=== PATIENT | female | born 1955 | race American Indian/Alaskan Native ===

== ENCOUNTER 2016-09-24 07:43 | Day surgery (SDC) | payer MEDICARE ==
[2016-09-24] MEDS ORDERED: ECOTRIN PO ONE ×2 (08:05→08:10)
[2016-09-24] MEDS ORDERED: NACL 0.9% 500 ML 500 ML ONE (08:05)
[2016-09-24] MEDS ORDERED: NACL 0.9% 500 ML 500 ML IV SCH (09:00)
[2016-09-24] MEDS ORDERED: VERSED ONE (11:21)
[2016-09-24] MEDS ORDERED: CALAN ONE (11:21)
[2016-09-24] MEDS ORDERED: SUBLIMAZE ONE (11:21)
[2016-09-24] MEDS ORDERED: HEPARIN/NS 5000 UNIT/500ML(CATH LAB) 1,000 ML IR ONE (11:21)
[2016-09-24] MEDS ORDERED: HEPARIN 10,000 UNITS/10 ML ONE (11:21)
[2016-09-24] MEDS ORDERED: XYLOCAINE 2% INFILTRATI ONE (11:22)
--- NOTE | 2016-09-24 12:16 | Short Stay Summary ---
Short Stay Documentation Date of service: 09/24/16 - History H&P: obtained from office - Allergies and Medications Current Medications: Allergies No Known Allergies Allergy (Verified 04/21/16 12:33) Home Medications Medication Instructions Recorded Confirmed Last Taken Type Aspirin 81 mg PO DAILY 03/26/16 09/24/16 09/23/16 History Carvedilol [Coreg] 25 mg PO BID 03/26/16 09/24/16 09/23/16 History [place]-3S/Dha/Epa/Fish Oil [Fish 1 each PO DAILY 03/26/16 09/24/16 09/23/16 History Oil 1,200 mg Softgel] Ranitidine HCl [Acid Control] 150 mg PO DAILY 03/26/16 09/24/16 09/23/16 History glipiZIDE [Glucotrol] 10 mg PO QDAY 03/26/16 09/24/16 09/23/16 History metFORMIN [Glucophage] 500 mg PO BID 03/26/16 09/24/16 09/23/16 History oxyCODONE /ACETAMINOPHEN [Percocet 1 tab PO DAILY 03/26/16 09/24/16 09/23/16 History 5/325] AtorvaSTATin [Lipitor] 20 mg PO DAILY 09/24/16 09/24/16 09/23/16 History Isosorb Dinit/Hydralazine HCl 1 tab PO TID 09/24/16 09/24/16 09/24/16 08:30 History [Bidil Tablet] Levothyroxine [Synthroid] 75 mcg PO QAM 09/24/16 09/24/16 09/23/16 History Active Medications Sodium Chloride (Nacl 0.9% 500 Ml) 500 mls @ 50 mls/hr IV DIRECT TONI Stop: 09/24/16 18:59 Last Admin: 09/24/16 08:40 Dose: 50 mls/hr - Brief post op/procedure progress note Date of procedure: 09/24/16 Pre-op diagnosis: abnormal stress test Procedure: LHC - please see dictated cath report Anesthesia: local Estimated blood loss: none Pathology: none Condition: stable - Hospital course Hospital course: Pt is a 60 YO female with a past medical history significant for HTN, DM, HLP, HF, CMP, and abnormal stress test. She presented for scheduled elective coronary angiography and subsequently underwent LHC via right radial artery per Dr. Ventura, which revealed normal coronaries. She remained clinically and hemodynamically stable throughout her procedure and recovery and is cleared for discharge home following the completion of her post-cath order set. 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
--- NOTE | 2016-09-24 14:06 | Cardiac Catherization Report ---
CARDIAC CATHETERIZATION REPORT INDICATIONS: The patient is a 60-year-old -[place]osoth[place] female with history of mild cardiomyopathy and having abnormal stress thallium with mild anterior ischemia. The patient is a hypertensive, diabetes, hyperlipidemic with history of congestive heart failure in 05/2016. Her ejection fraction was 20%-25% then. The patient also had cardiac catheterization done in the past in 01/2011, one time initially it was felt that the patient has a right coronary disease; however, repeat coronary angiography done on 01/29/2011 showed no significant coronary disease and normal contractility was noted. Continued on medical therapy. The patient presently brought to the catheterization because of chest pains. The patient was brought to the catheterization laboratory in fasting condition. The right wrist area and forearm thoroughly cleansed with Betadine solution and sterile drapes were applied. Local anesthesia was achieved using 2% Xylocaine. Right radial artery puncture was made using 21-gauge arterial puncture needle. Subsequently, 6-Lao sheath was introduced. A 5-Lao multipurpose catheter was used to obtain the angiograms of the left ventricle done in WALTER projection followed by using 5-Lao TIG catheter were obtaining the angiograms of the left coronary artery and right coronary artery in multiple views. At the end of the procedure, catheter and sheath were removed. Good hemostasis was achieved with pressure bandage. Following findings were noted. HEMODYNAMICS: 1. Opening aortic pressure 149/63. Left ventricular pressure 145/21. No gradient across the aortic valve. Estimated ejection fraction 45%-50%. 2. Left ventriculogram done in WALTER projection showed very mild LV dysfunction with diffuse hypokinesis. Ejection fraction is 45%-50%. No significant mitral regurgitation noted. 3. Right coronary artery dominant vessel is arising normally from right coronary cusp, angiographically smooth and normal. 4. Left coronary artery arises normally from left coronary cusp. Left main, LAD, which curves around the apex and its branches, circumflex artery and its branches are angiographically smooth and normal. Collaterals none. FINAL IMPRESSION: 1. Mild LV dysfunction with ejection fraction 45%-50%. 2. Normal coronary anatomy. 3. Right radial artery was used for access. Procedure was uncomplicated. The patient will be continued on risk factor modification and medical therapy. [facility]# [id number] CRISELDA/NTS
[2016-09-24 14:20] VITALS: BP 150/78
== END 2016-09-24 14:45 | disposition home or self-care (01) ==
LOC: OPU 07:43
PROVIDERS: ATTEND Internal Medicine
DX: R94.39 Abnormal result of other cardiovascular function study (principal); I42.8 Other cardiomyopathies; I11.0 Hypertensive heart disease with heart failure; I50.9 Heart failure, unspecified; E78.5 Hyperlipidemia, unspecified; E11.9 Type 2 diabetes mellitus without complications; E03.9 Hypothyroidism, unspecified; Z79.899 Other long term (current) drug therapy; Z79.84 Long term (current) use of oral hypoglycemic drugs; Z87.891 Personal history of nicotine dependence; Z80.9 Family history of malignant neoplasm, unspecified; Z82.49 Family history of ischemic heart disease and other diseases of the circulatory system; Z82.3 Family history of stroke; Z88.6 Allergy status to analgesic agent; Z88.8 Allergy status to other drugs, medicaments and biological substances
CPT/HCPCS: 93005; 93010; 93458; C1887; C1894; J1644; J2250; J3010; J7040; 82962; Q9967

== ENCOUNTER 2017-09-09 10:42 | Inpatient (IN) | payer MEDICARE ==
[2017-09-09] MEDS ORDERED: ASPIRIN PO ONE (11:08)
--- NOTE | 2017-09-09 11:16 | Emergency Department Report ---
ED Chest Pain HPI - General Chief Complaint: Chest Pain Stated Complaint: CHEST PAIN/DIZZINESS Time Seen by Provider: 09/09/17 11:11 Source: patient Mode of arrival: Ambulatory Limitations: No Limitations - History of Present Illness Initial Comments: She is 61-year-old female that presents emergency room with complaints of chest pain started at 6 AM this morning at rest and shortness of breath and dizziness. Patient states took her blood pressure home and she was hypotensive at 62/36 hours since being here the blood pressure is normalized. Patient states the pain was substernal left chest and radiating to her left lateral chest. Patient states the pain was a 10 out of 10 at home but has since reduced down to 2 out of 10. Patient states that her shortness of breath and dizziness are little bit better. Patient states her symptoms are better with rest and worse with movement. Patient states she does not have a history of A. fib. -: Sudden Onset: during rest Pain Location: substernal, left chest Pain Radiation: other (left lateral chest underneath her left breast) Severity: severe Severity scale (0 -10): 10 Quality: sharp Consistency: other (pain is improving) Improves With: rest Worsens With: exertion, movement re: dyspnea. denies: nausea, vomting, diaphoresis, sense of impending doom Other Symptoms: palpitations. denies: cough, fever, syncope, rash, acid taste in mouth, leg swelling, burping Treatments Prior to Arrival: none Aspirin use within the Past 7 Days: (1) Yes - Related Data Home Medications Medication Instructions Recorded Confirmed Last Taken Aspirin 81 mg PO DAILY 03/26/16 09/09/17 09/23/16 Carvedilol [Coreg] 25 mg PO BID 03/26/16 09/09/17 09/09/17 glipiZIDE [Glucotrol] 10 mg PO BID 03/26/16 09/09/17 09/23/16 metFORMIN [Glucophage] 1,000 mg PO BID 03/26/16 09/09/17 09/23/16 oxyCODONE /ACETAMINOPHEN [Percocet 1 tab PO BID PRN 03/26/16 09/09/17 09/23/16 5/325 mg] AtorvaSTATin [Lipitor] 10 mg PO DAILY 09/24/16 09/09/17 09/23/16 Isosorbibe Dinit/Hydralazine 1 tab PO TID 09/24/16 09/09/17 09/24/16 08:30 [Bidil Tablet] Levothyroxine [Synthroid] 75 mcg PO QAM 09/24/16 09/09/17 09/23/16 Amlodipine Besylate [Norvasc] 5 mg PO QDAY 09/09/17 09/09/17 Unknown Cholecalciferol (Vitamin D3) 1,000 unit PO QDAY 09/09/17 09/09/17 Unknown [Vitamin D3] Ferrous Sulfate [Iron] 325 mg PO QDAY 09/09/17 09/09/17 Unknown Losartan [Cozaar] 100 mg PO QDAY 09/09/17 09/09/17 09/09/17 Ranitidine HCl [Zantac 150 MG TAB] 150 mg PO QDAY 09/09/17 09/09/17 Unknown Allergies Allergy/AdvReac Type Severity Reaction Status Date / Time No Known Allergies Allergy Verified 04/21/16 12:33 Heart Score - HEART Score History: Slightly suspicious EKG: Normal Age: 45-65 Risk factors: > 3 risk factors or hx of atherosclerotic disease Troponin: < normal limit HEART Score: 3 ED Review of Systems ROS: Stated complaint: CHEST PAIN/DIZZINESS Other details as noted in HPI Comment: All other systems reviewed and negative Constitutional: denies: chills, fever Eyes: denies: eye pain, eye discharge, vision change ENT: denies: ear pain, throat pain Respiratory: shortness of breath. denies: cough, wheezing Cardiovascular: chest pain, palpitations, dyspnea on exertion Endocrine: no symptoms reported Gastrointestinal: denies: abdominal pain, nausea, diarrhea Genitourinary: denies: urgency, dysuria, discharge Musculoskeletal: denies: back pain, joint swelling, arthralgia Skin: denies: rash, lesions Neurological: other (dizziness). denies: headache, weakness, paresthesias Psychiatric: denies: anxiety, depression Hematological/Lymphatic: denies: easy bleeding, easy bruising ED Past Medical Hx - Past Medical History Previous Medical History?: Yes Hx Hypertension: Yes Hx Heart Attack/AMI: Yes (2009, cath negative per patient, follows with Dr. Minor ) Hx Congestive Heart Failure: Yes Hx Diabetes: Yes (TYPE 2) Hx GERD: Yes Hx Liver Disease: No Hx Renal Disease: No Hx Headaches / Migraines: No Hx Seizures: No Hx Kidney Stones: Yes (2015) Hx Asthma: No Hx HIV: No Additional medical history: Thyroid - Surgical History Past Surgical History?: Yes Hx Coronary Stent: No Hx Open Heart Surgery: No Hx Pacemaker: No Hx Internal Defibrillator: No Hx Cholecystectomy: No Hx Appendectomy: No Hx Breast Surgery: No Additional Surgical History: thyroidectomy - Family History Family history: hypertension - Social History Smoking Status: Never Smoker Substance Use Type: None - Medications Home Medications: Home Medications Medication Instructions Recorded Confirmed Last Taken Type Aspirin 81 mg PO DAILY 03/26/16 09/09/17 09/23/16 History Carvedilol [Coreg] 25 mg PO BID 03/26/16 09/09/17 09/09/17 History glipiZIDE [Glucotrol] 10 mg PO BID 03/26/16 09/09/17 09/23/16 History metFORMIN [Glucophage] 1,000 mg PO BID 03/26/16 09/09/17 09/23/16 History oxyCODONE /ACETAMINOPHEN [Percocet 1 tab PO BID PRN 03/26/16 09/09/17 09/23/16 History 5/325 mg] AtorvaSTATin [Lipitor] 10 mg PO DAILY 09/24/16 09/09/17 09/23/16 History Isosorbibe Dinit/Hydralazine 1 tab PO TID 09/24/16 09/09/17 09/24/16 08:30 History [Bidil Tablet] Levothyroxine [Synthroid] 75 mcg PO QAM 09/24/16 09/09/17 09/23/16 History Amlodipine Besylate [Norvasc] 5 mg PO QDAY 09/09/17 09/09/17 Unknown History Cholecalciferol (Vitamin D3) 1,000 unit PO QDAY 09/09/17 09/09/17 Unknown History [Vitamin D3] Ferrous Sulfate [Iron] 325 mg PO QDAY 09/09/17 09/09/17 Unknown History Losartan [Cozaar] 100 mg PO QDAY 09/09/17 09/09/17 09/09/17 History Ranitidine HCl [Zantac 150 MG TAB] 150 mg PO QDAY 09/09/17 09/09/17 Unknown History ED Physical Exam - General Limitations: No Limitations General appearance: alert, in no apparent distress - Head Head exam: Present: atraumatic, normocephalic - Eye Eye exam: Present: normal appearance - ENT ENT exam: Present: mucous membranes moist - Neck Neck exam: Present: normal inspection - Respiratory Respiratory exam: Present: normal lung sounds bilaterally. Absent: respiratory distress - Cardiovascular Cardiovascular Exam: Present: regular rate, normal rhythm. Absent: systolic murmur, diastolic murmur, rubs, gallop - GI/Abdominal GI/Abdominal exam: Present: soft, normal bowel sounds - Extremities Exam Extremities exam: Present: normal inspection - Back Exam Back exam: Present: normal inspection - Neurological Exam Neurological exam: Present: alert, oriented X3 - Psychiatric Psychiatric exam: Present: normal affect, normal mood - Skin Skin exam: Present: warm, dry, intact, normal color. Absent: rash ED Course Vital Signs 09/09/17 09/09/17 09/09/17 11:03 11:37 11:45 Temperature 98.7 F Pulse Rate 74 147 H 138 H Respiratory 21 15 Rate Blood Pressure 124/74 118/74 O2 Sat by Pulse 98 99 97 Oximetry 09/09/17 09/09/17 09/09/17 12:00 12:15 12:31 Temperature Pulse Rate 140 H 128 H 143 H Respiratory 22 24 29 H Rate Blood Pressure 99/64 100/54 100/54 O2 Sat by Pulse 98 96 Oximetry 09/09/17 09/09/17 09/09/17 12:45 13:01 13:15 Temperature Pulse Rate 132 H 152 H 134 H Respiratory 22 17 15 Rate Blood Pressure 103/80 122/69 122/69 O2 Sat by Pulse 97 95 Oximetry 09/09/17 09/09/17 09/09/17 13:30 13:45 14:01 Temperature Pulse Rate 112 H 122 H 139 H Respiratory 25 H 19 20 Rate Blood Pressure 119/61 119/61 105/68 O2 Sat by Pulse 97 97 Oximetry 09/09/17 09/09/17 09/09/17 14:15 14:30 15:09 Temperature Pulse Rate 133 H 124 H 110 H Respiratory 26 H 17 Rate Blood Pressure 119/50 105/72 106/70 O2 Sat by Pulse 95 95 Oximetry - Reevaluation(s) Reevaluation #1: Bit Tapper consult. Discussed cased discussed fully with photo mask pattern generator and they stated they will come down and see her now. 09/09/17 11:56 Reevaluation #2: Bit Tapper at bedside 09/09/17 12:19 Reevaluation #3: Hospitalist consulted for admission. Discussed case with patient and hospitalist. Discussed all results with patient. Discussed plan of care with patient. Patient agreed to admission. We will start amiodarone for the A. fib with RVR 09/09/17 12:24 ANA LAURA score - Ana Laura Score Age > 65: (0) No Aspirin use within the Past 7 Days: (1) Yes 3 or more CAD Risk Factors: (1) Yes 2 or more Angina events in past 24 hrs: (0) No Known CAD with more than 50% Stenosis: (0) No Elevated Cardiac Markers: (0) No ST Deviation Greater than 0.5mm: (0) No ANA LAURA Score: 2 ED Medical Decision Making - Lab Data Result diagrams: 09/09/17 11:12 09/09/17 11:12 - EKG Data -: EKG Interpreted by Ms EKG shows normal: QRS complexes, ST-T waves Rate: tachycardia - EKG Data Interpretation: other (A. fib RVR) - Radiology Data Radiology results: report reviewed, image reviewed Negative chest - Medical Decision Making Patient's 61-year-old female that presents to emergency room with chest pain, shortness of breath and dizziness. Patient also had hypotension at home. Patient found to have A. fib RVR. New onset A. fib. Bit Tapper consultation and agreed with admission to the hospitalist group. Critical Care Time: Yes Critical care attestation.: If time is entered above; I have spent that time in minutes in the direct care of this critically ill patient, excluding procedure time. Critical Care Time: 45 minutes spent for critical care time ED Disposition Clinical Impression: Chest pain, Hypotension, Shortness of breath, Atrial fibrillation with RVR, Elevated brain natriuretic peptide (BNP) level, Diabetes, HTN (hypertension) Disposition: OP ADMIT IP TO THIS HOSP Is pt being admited?: Yes Does the pt Need Aspirin: No Condition: Critical Time of Disposition: 12:45
[2017-09-09] MEDS ORDERED: NACL 0.9% 500 ML 500 ML IV ONE (11:31)
[2017-09-09 11:47] LABS: Basophils # (Auto) 0.1 K/mm3 (0.0-0.1); Basophils % (Auto) 0.5 % (0.0-1.8); Eosinophils # (Auto) 0.2 K/mm3 (0.0-0.4); Hematocrit 35.8 % (30.3-42.9); Lymphocytes # (Auto) 2.3 K/mm3 (1.2-5.4); Lymphocytes % (Auto) 22.9 % (13.4-35.0); Mean Corpuscular HGB Conc 31 % (30-34); Mean Corpuscular Volume 77 fl (79-97); Monocytes # (Auto) 0.3 K/mm3 (0.0-0.8); Platelet Count 247 K/mm3 (140-440); Red Blood Count 4.62 M/mm3 (3.65-5.03); Red Cell Distribution Width 14.3 % (13.2-15.2)
[2017-09-09 11:48] LABS: Mean Corpuscular Hemoglobin 24 pg (28-32)
--- NOTE | 2017-09-09 12:05 | XRay Report ---
AP CHEST: HISTORY: chest pain AP view of the chest demonstrates a normal mediastinal and cardiac contour with clear lungs and normal bony and soft tissue structures. IMPRESSION: No acute cardiopulmonary process.
--- NOTE | 2017-09-09 12:16 | Consultation ---
History of Present Illness Consult date: 09/09/17 Requesting physician: GWYN OROPEZA III Consult reason: atrial fibrillation History of present illness: The pt is a 61 YO female with a past medical history significant for HTN, HLP, DM, heart failure, hypothyroidism, s/p thyroidectomy. She is followed in our office by Dr. Minor. She presented with c/o dizziness, palpitations and chest pressure since this AM. She reports that she was in her usual state of health when she went to sleep last night. She states that at the onset of her symptoms this AM, she took her BP and noted BP to be 60s/40s and thus she decided to seek medical attention. Following arrival to ED, she was noted to be in AFib with RVR, HR 130s - 150s. On evaluation, she denies any current SOB, n/v, diaphoresis or syncope. Pt denies any prior history of cardiac arrhythmia. Echo done 09/2016 showed EF 45-50%, grade I diastolic dysfunction, minimal MR, mild AR, mild TR. LHC done 09/2016 showed normal coronaries, EF 45-50%. Past History Past Medical History: diabetes, hypertension, hyperlipidemia, hypothyroidism Past Surgical History: thyroidectomy Social history: denies: smoking, alcohol abuse, prescription drug abuse Medications and Allergies Allergies Allergy/AdvReac Type Severity Reaction Status Date / Time No Known Allergies Allergy Verified 04/21/16 12:33 Home Medications Medication Instructions Recorded Confirmed Last Taken Type Aspirin 81 mg PO DAILY 03/26/16 09/09/17 09/23/16 History Carvedilol [Coreg] 25 mg PO BID 03/26/16 09/09/17 09/09/17 History glipiZIDE [Glucotrol] 10 mg PO BID 03/26/16 09/09/17 09/23/16 History metFORMIN [Glucophage] 1,000 mg PO BID 03/26/16 09/09/17 09/23/16 History oxyCODONE /ACETAMINOPHEN [Percocet 1 tab PO BID PRN 03/26/16 09/09/17 09/23/16 History 5/325 mg] AtorvaSTATin [Lipitor] 10 mg PO DAILY 09/24/16 09/09/17 09/23/16 History Isosorbibe Dinit/Hydralazine 1 tab PO TID 09/24/16 09/09/17 09/24/16 08:30 History [Bidil Tablet] Levothyroxine [Synthroid] 75 mcg PO QAM 09/24/16 09/09/17 09/23/16 History Amlodipine Besylate [Norvasc] 5 mg PO QDAY 09/09/17 09/09/17 Unknown History Cholecalciferol (Vitamin D3) 1,000 unit PO QDAY 09/09/17 09/09/17 Unknown History [Vitamin D3] Ferrous Sulfate [Iron] 325 mg PO QDAY 09/09/17 09/09/17 Unknown History Losartan [Cozaar] 100 mg PO QDAY 09/09/17 09/09/17 09/09/17 History Ranitidine HCl [Zantac 150 MG TAB] 150 mg PO QDAY 09/09/17 09/09/17 Unknown History Review of Systems Constitutional: no weight loss, no weight gain, no fever, no chills, no sweats Ears, nose, mouth and throat: no ear pain, no nose pain, no sinus pressure, no sinus pain Cardiovascular: chest pain, palpitations, rapid/irregular heart beat, lightheadedness, shortness of breath, high blood pressure, no orthopnea, no edema, no syncope, no paroxysmal nocturnal dyspnea, no leg edema Respiratory: shortness of breath, no cough, no congestion, no wheezing, no pain on inspiration Gastrointestinal: no abdominal pain, no nausea, no vomiting, no diarrhea, no constipation Genitourinary Female: no pelvic pain, no flank pain, no dysuria, no urinary frequency, no urgency Musculoskeletal: no neck stiffness, no neck pain, no shooting arm pain, no arm numbness/tingling, no low back pain, no shooting leg pain, no leg numbness/ tingling, no redness of joints Integumentary: no rash, no pruritis, no redness, no sores, no wounds Neurological: no head injury, no paralysis, no weakness, no parathesias, no numbness, no tingling, no seizures, no syncope Psychiatric: no anxiety Endocrine: no cold intolerance, no heat intolerance Hematologic/Lymphatic: no easy bruising, no easy bleeding, no lymphadenopathy Allergic/Immunologic: no urticaria, no wheezing, no persistent infections Physical Examination Vital Signs Temp Pulse BP Pulse Ox 98.7 F 74 124/74 98 09/09/17 11:03 05/04/18 11:03 09/09/17 11:03 09/09/17 11:03 General appearance: no acute distress HEENT: Positive: PERRL, Normocephaly, Mucus Membranes Moist Neck: Positive: neck supple, trachea midline Cardiac: Positive: irregularly irregular, S1/S2, Tachycardia Lungs: Positive: clear to auscultation Neuro: Positive: Grossly Intact, Cranial Nerve 2-12 Intact Abdomen: Positive: Soft. Negative: Tender Skin: Positive: Clear. Negative: Rash, Wound Musculoskeletal: No Fluid Collection, No Pain, Normal Range of Motion Extremities: Absent: edema Results 09/09/17 11:12 09/09/17 11:12 CBC 09/09/17 Range/Units 11:12 WBC 10.1 (4.5-11.0) K/mm3 RBC 4.62 (3.65-5.03) M/mm3 Hgb 11.0 (10.1-14.3) gm/dl Hct 35.8 (30.3-42.9) % Plt Count 247 (140-440) K/mm3 Lymph # 2.3 (1.2-5.4) K/mm3 [place] # 0.3 (0.0-0.8) K/mm3 Eos # 0.2 (0.0-0.4) K/mm3 Baso # 0.1 (0.0-0.1) K/mm3 - Imaging and Cardiology Echo: report reviewed (09/2016 showed EF 45-50%, grade I diastolic dysfunction, minimal MR, mild AR, mild TR. ) Cardiac cath: report reviewed (09/2016 showed normal coronaries, EF 45-50%. ) EKG: report reviewed, image reviewed EKG interpretations - Telemetry EKG Rhythm: Atrial Fibrillation - EKG Supraventricular dysrhythmia: atrial fibrillation Assessment and Plan Assessment: Atrial fibrillation with RVR - ? new onset; DDimer WNL JIMBO on ? CKD H/o HTN - currently with borderline hypotension HLP DM Mild LV dysfunction / diastolic dysfunction - EF 45-50% per echo 09/2016 H/o normal coronaries H/o hypothyroidism s/cp thyroidectomy Plan: F/u echo. Obtain thyroid profile and serum Mg. Initiate IV amio gtt with bolus x 1. Initiate heparin gtt for systemic AC in regards to atrial fibrillation and plan for conversion to OAC prior to hospital discharge. Indications, potential risks and benefits of fci OAC reviewed with pt and she is agreeable. Cont gentle IVF per primary in setting of JIMBO. Consider nephrology consultation if renal indices trend upwards. Assessment and plan reviewed with pt at bedside. The patient has been seen in conjunction with Dr. Osorio who agrees with the assessment and plan of care.
[2017-09-09 12:19] LABS: BUN/Creatinine Ratio 17; Blood Urea Nitrogen 32 mg/dL (7-17); Calcium 8.8 mg/dL (8.4-10.2); Hemolysis Index 2
[2017-09-09] MEDS ORDERED: CORDARONE 150 MG in D5W 100 ML IV ONE (12:19)
[2017-09-09] MEDS ORDERED: CORDARONE 900 MG in D5W 482 ML IV SCH (13:00)
--- NOTE | 2017-09-09 13:05 | History and Physical Report ---
History of Present Illness Chief complaint: I have chest pain History of present illness: 61 YO Female with HTN, HLD, DC, CHF, DM, GERD, Hypothyroidism presents to ED for evaluation. Pt states that she has experienced pain in her chest for the past day. Pt states that symtoms began at 0600hrs today. Pain is 10/10, substernal, radiates to the left chest, sharp, worsened with exertion, relieved with rest, associated with shortness of breath, diaphoresis. Pt seen and evaluated in ED and found to have new onset Atrial Fib with RVR, as well as symptoms consistent with ACS, Diastolic CHF. Cardiology team consulted in ED. Pt denies fever, chills, NVD, Trauma, BRBPR, unintentional weight loss, night sweats, prolonged travel/immobility, individual/family history of DVT/PE, productive cough, skin rash. Past History Past Medical History: diabetes, heart failure, hypertension, hyperlipidemia, hypothyroidism Past Surgical History: thyroidectomy Social history: Family history: diabetes, hypertension Medications and Allergies Allergies Allergy/AdvReac Type Severity Reaction Status Date / Time No Known Allergies Allergy Verified 04/21/16 12:33 Home Medications Medication Instructions Recorded Confirmed Last Taken Type Aspirin 81 mg PO DAILY 03/26/16 09/09/17 09/23/16 History Carvedilol [Coreg] 25 mg PO BID 03/26/16 09/09/17 09/09/17 History glipiZIDE [Glucotrol] 10 mg PO BID 03/26/16 09/09/17 09/23/16 History metFORMIN [Glucophage] 1,000 mg PO BID 03/26/16 09/09/17 09/23/16 History oxyCODONE /ACETAMINOPHEN [Percocet 1 tab PO BID PRN 03/26/16 09/09/17 09/23/16 History 5/325 mg] AtorvaSTATin [Lipitor] 10 mg PO DAILY 09/24/16 09/09/17 09/23/16 History Isosorbibe Dinit/Hydralazine 1 tab PO TID 09/24/16 09/09/17 09/24/16 08:30 History [Bidil Tablet] Levothyroxine [Synthroid] 75 mcg PO QAM 09/24/16 09/09/17 09/23/16 History Amlodipine Besylate [Norvasc] 5 mg PO QDAY 09/09/17 09/09/17 Unknown History Cholecalciferol (Vitamin D3) 1,000 unit PO QDAY 09/09/17 09/09/17 Unknown History [Vitamin D3] Ferrous Sulfate [Iron] 325 mg PO QDAY 09/09/17 09/09/17 Unknown History Losartan [Cozaar] 100 mg PO QDAY 09/09/17 09/09/17 09/09/17 History Ranitidine HCl [Zantac 150 MG TAB] 150 mg PO QDAY 09/09/17 09/09/17 Unknown History Active Meds: Active Medications Amiodarone HCl 900 mg/ (Dextrose) 500 mls @ 33.33 mls/hr IV DIRECT TONI; Protocol Review of Systems Constitutional: no weight loss, no weight gain, no fever, no chills Ears, nose, mouth and throat: no ear pain, no ear discharge, no tinnitis, no decreased hearing, no nose pain, no nasal congestion Breasts: no change in shape, no swelling, no mass Cardiovascular: chest pain, shortness of breath, no edema, no syncope, no paroxysmal nocturnal dyspnea, no claudication, no phlebitis Respiratory: no cough, no cough with sputum, no excessive sputum, no hemoptysis Gastrointestinal: no nausea, no vomiting, no diarrhea, no constipation, no change in bowel habits, no hematemesis Genitourinary Female: no pelvic pain, no flank pain, no menorrhagia, no dysuria , no urinary frequency, no urgency Rectal: no pain, no incontinence, no bleeding Musculoskeletal: no neck stiffness, no neck pain, no shooting arm pain, no arm numbness/tingling, no low back pain, no shooting leg pain, no leg numbness/ tingling Integumentary: no rash, no pruritis, no redness, no sores, no wounds, no jaundice Neurological: no transient paralysis, no paralysis, no weakness, no parathesias , no numbness, no tingling, no seizures, no syncope, no tremors Psychiatric: no anxiety, no memory loss, no change in sleep habits, no sleep disturbances, no insomnia, no hypersomnia, no change in appetite, no change in libido, no suicidal ideation, no disorientation Endocrine: no cold intolerance, no heat intolerance, no polyphagia, no excessive thirst, no polydipsia, no polyuria, no nocturia, no excessive sweating Hematologic/Lymphatic: no easy bruising, no easy bleeding, no lymphadenopathy, no lymphedema Allergic/Immunologic: no urticaria, no allergic rhinitis, no wheezing, no persistent infections, no anaphylaxis, no angioedema Exam - Constitutional Vitals: Temp Pulse Resp BP Pulse Ox 98.7 F 74 124/74 98 09/09/17 11:03 09/09/17 11:03 09/09/17 11:03 09/09/17 11:03 General appearance: Present: mild distress - EENT Eyes: Present: PERRL ENT: hearing intact, clear oral mucosa - Neck Neck: Present: supple, normal ROM - Respiratory Respiratory effort: normal Respiratory: bilateral: CTA - Cardiovascular Rhythm: irregularly irregular Heart Sounds: Present: S1 & S2. Absent: rub, click - Extremities Extremities: pulses symmetrical, No edema Peripheral Pulses: within normal limits - Abdominal General gastrointestinal: Present: soft, non-tender, non-distended, normal bowel sounds Female genitourinary: Present: normal - Integumentary Integumentary: Present: clear, warm, dry - Musculoskeletal Musculoskeletal: gait normal, strength equal bilaterally - Psychiatric Psychiatric: appropriate mood/affect, intact judgment & insight - Neurologic Neurologic: CNII-XII intact, moves all extremities Results - Labs CBC & Chem 7: 09/09/17 11:12 09/09/17 11:12 Labs: Abnormal lab results 09/09/17 09/09/17 Range/Units 11:12 11:12 MCV 77 L (79-97) fl MCH 24 L (28-32) pg Seg Neutrophils % 71.6 H (40.0-70.0) % Carbon Dioxide 20 L (22-30) mmol/L BUN 32 H (7-17) mg/dL Creatinine 1.9 H (0.7-1.2) mg/dL Glucose 314 H (65-100) mg/dL Assessment and Plan - Patient Problems (1) ACS (acute coronary syndrome) Current Visit: Yes Status: Acute Plan to address problem: admit to telemetry, heparin drip, serial cardiac enzymes, ekg, cardiology consulted, supplemental oxygen, morphine, nitro tabs, aspirin (2) CHF (congestive heart failure) Current Visit: Yes Status: Acute Qualifiers: Heart failure type: systolic Heart failure chronicity: acute on chronic Qualified Code(s): I50.23 - Acute on chronic systolic (congestive) heart failure Plan to address problem: Admit to telemetry, cardiology consulted, Echo, monitor uop q shift, strict I/O , daily weight, afterload reduction, (3) Hypothyroid Current Visit: Yes Status: Acute Qualifiers: Hypothyroidism type: postoperative Qualified Code(s): E89.0 - Postprocedural hypothyroidism Plan to address problem: continue synthroid, thyroid panel, supportive care. (4) Atrial fibrillation with RVR Current Visit: Yes Status: Acute Plan to address problem: Cardiology consulted in ED, IV amiodarone, telemetry monitoring (5) DVT prophylaxis Current Visit: Yes Status: Acute Plan to address problem: SCD to ble while in bed,
[2017-09-09] MEDS ORDERED: NITROSTAT SL PRN (13:12)
[2017-09-09] MEDS ORDERED: MORPHINE IV PRN (13:12)
[2017-09-09] MEDS ORDERED: PROVENTIL IH PRN (13:12)
[2017-09-09] MEDS ORDERED: BABY ASPIRIN PO STA (13:12)
[2017-09-09] MEDS ORDERED: TYLENOL PO PRN (13:12)
[2017-09-09] MEDS ORDERED: ZOFRAN IV PRN (13:12)
[2017-09-09] MEDS ORDERED: SODIUM CHLORIDE FLUSH SYRINGE 10 ML IV PRN ×2 (13:12)
[2017-09-09] MEDS ORDERED: HEPARIN 10,000 UNITS/10 ML IV ONE (13:16)
[2017-09-09 13:54] LABS: INR 0.88 (0.87-1.13); Partial Thromboplastin Time 27.7 Sec. (24.2-36.6)
[2017-09-09] MEDS ORDERED: ASPIRIN ONE (14:59)
[2017-09-09] MEDS ORDERED: HEPARIN ONE (14:59)
[2017-09-09] MEDS: BIDIL 20/37.5MG PO SCH ×2 (15:09→21:49)
[2017-09-09] MEDS ORDERED: HEPARIN 10,000 UNITS/10 ML ONE (15:40)
[2017-09-09] MEDS: LASIX IV SCH (17:38)
[2017-09-09] MEDS: HEPARIN/ 0.45% NACL-25,000 UNIT/500 ML 25,000 UNIT/500 ML BAG IV SCH (17:38)
[2017-09-09] MEDS: PEPCID PO SCH (21:49)
[2017-09-09] MEDS: COREG PO SCH (21:49)
[2017-09-09] MEDS: SODIUM CHLORIDE FLUSH SYRINGE 10 ML IV SCH (21:50)
[2017-09-10] MEDS: LASIX IV SCH ×2 (06:09→17:44)
[2017-09-10] MEDS: PEPCID PO SCH ×2 (09:52→21:48)
[2017-09-10] MEDS: SYNTHROID PO SCH (09:52)
[2017-09-10] MEDS: COZAAR PO SCH (09:54)
[2017-09-10] MEDS: COREG PO SCH ×2 (09:55→21:53)
[2017-09-10] MEDS: BIDIL 20/37.5MG PO SCH ×3 (09:55→21:54)
[2017-09-10] MEDS: FEOSOL PO SCH (09:55)
[2017-09-10] MEDS: SODIUM CHLORIDE FLUSH SYRINGE 10 ML IV SCH ×2 (09:57→21:55)
[2017-09-10] MEDS ORDERED: NON-FORMULARY (Cholecalciferol (Vitamin D3) [Vitamin D3] 1,000 UNIT) PO SCH (10:00)
[2017-09-10] MEDS ORDERED: NORVASC PO SCH (10:00)
[2017-09-10] MEDS ORDERED: NON-FORMULARY (Losartan [Cozaar] 100 MG) PO SCH (10:00)
[2017-09-10] MEDS ORDERED: NON-FORMULARY (Ranitidine Hcl [Zantac 150 Mg Tab] 150 MG) PO SCH (10:00)
[2017-09-10] MEDS: VITAMIN D3 PO SCH (10:58)
--- NOTE | 2017-09-10 11:18 | Progress Note ---
Assessment and Plan Assessment and plan: Atrial fibrillation with RVR - ? new onset; D-Dimer was within normal limits. Rate is controlled with amiodarone. Change amiodarone to po per cardiology. Continue heparin drip per cardiology. Cardiology plans to convert to oral anticoagulation prior to discharge. Mild LV dysfunction / diastolic dysfunction - EF 45-50% per echo 09/2016. History of normal coronaries. JIMBO on ? CKD. Patient with baseline creatinine of 1.11 March 2016. Etiology likely secondary to vasomotor nephropathy/prerenal azotemia/dehydration Follow- up creatinine after IV fluid hydration. If no improvement in creatinine, we will obtain nephrology consultation and renal ultrasound. H/o HTN - currently with borderline hypotension. HLP. Continue Lipitor Hypothyroidism. Continue Synthroid. S/p thyroidectomy DM II. Continue Accu-Cheks and sliding scale insulin. DVT prophylaxis. Patient currently on heparin drip. History Interval history: Patient denies any chest pain or shortness of breath. Hospitalist Physical - Constitutional Vitals: Temp Pulse Resp BP Pulse Ox 97.9 F 76 16 128/70 99 09/10/17 09:10 09/10/17 10:00 09/10/17 09:10 09/10/17 09:55 09/10/17 09:10 General appearance: Present: mild distress - EENT Eyes: Present: PERRL, EOM intact ENT: hearing intact, clear oral mucosa, dentition normal - Neck Neck: Present: supple, normal ROM - Respiratory Respiratory effort: normal Respiratory: bilateral: CTA - Cardiovascular Rhythm: regular Heart Sounds: Present: S1 & S2. Absent: gallop, rub - Extremities Extremities: no ischemia, No edema, Full ROM - Abdominal General gastrointestinal: soft, non-tender, non-distended, normal bowel sounds - Integumentary Integumentary: Present: clear, warm, dry - Neurologic Neurologic: CNII-XII intact, moves all extremities Results - Labs CBC & Chem 7: 09/09/17 11:12 09/09/17 11:12 Labs: Laboratory Last Values WBC 10.1 K/mm3 (4.5-11.0) 09/09/17 11:12 RBC 4.62 M/mm3 (3.65-5.03) 09/09/17 11:12 Hgb 11.0 gm/dl (10.1-14.3) 09/09/17 11:12 Hct 35.8 % (30.3-42.9) 09/09/17 11:12 MCV 77 fl (79-97) L 09/09/17 11:12 MCH 24 pg (28-32) L 09/09/17 11:12 MCHC 31 % (30-34) 09/09/17 11:12 RDW 14.3 % (13.2-15.2) 09/09/17 11:12 Plt Count 247 K/mm3 (140-440) 09/09/17 11:12 Lymph % (Auto) 22.9 % (13.4-35.0) 09/09/17 11:12 [place] % (Auto) 3.0 % (0.0-7.3) 09/09/17 11:12 Eos % (Auto) 2.0 % (0.0-4.3) 09/09/17 11:12 Baso % (Auto) 0.5 % (0.0-1.8) 09/09/17 11:12 Lymph # 2.3 K/mm3 (1.2-5.4) 09/09/17 11:12 [place] # 0.3 K/mm3 (0.0-0.8) 09/09/17 11:12 Eos # 0.2 K/mm3 (0.0-0.4) 09/09/17 11:12 Baso # 0.1 K/mm3 (0.0-0.1) 09/09/17 11:12 Seg Neutrophils % 71.6 % (40.0-70.0) H 09/09/17 11:12 Seg Neutrophils # 7.2 K/mm3 (1.8-7.7) 09/09/17 11:12 PT 12.4 Sec. (12.2-14.9) 09/09/17 11:12 INR 0.88 (0.87-1.13) 09/09/17 11:12 APTT 27.7 Sec. (24.2-36.6) 09/09/17 11:12 D-Dimer < 135.00 ng/mlDDU (0-234) 09/09/17 11:12 Heparin Anti-Xa Level 1.01 U.I./ml (0.3-0.7) H 09/09/17 23:03 Sodium 140 mmol/L (137-145) 09/09/17 11:12 Potassium 5.0 mmol/L (3.6-5.0) 09/09/17 11:12 Chloride 102.9 mmol/L (98-107) 09/09/17 11:12 Carbon Dioxide 20 mmol/L (22-30) L 09/09/17 11:12 Anion Gap 22 mmol/L 09/09/17 11:12 BUN 32 mg/dL (7-17) H 09/09/17 11:12 Creatinine 1.9 mg/dL (0.7-1.2) H 09/09/17 11:12 Estimated GFR 32 ml/min 09/09/17 11:12 BUN/Creatinine Ratio 17 % 09/09/17 11:12 Glucose 314 mg/dL (65-100) H 09/09/17 11:12 POC Glucose 181 (70-105) H 09/10/17 07:16 Calcium 8.8 mg/dL (8.4-10.2) 09/09/17 11:12 Magnesium 1.50 mg/dL (1.7-2.3) L 09/09/17 11:12 Troponin T < 0.010 ng/mL (0.00-0.029) 09/09/17 19:29 NT-Pro-B Natriuret Pep 360.9 pg/mL (0-900) 09/09/17 11:12 TSH 0.837 mlU/mL (0.270-4.200) 09/09/17 11:12 Free T4 1.05 ng/dL (0.76-1.46) 09/09/17 11:12
--- NOTE | 2017-09-10 13:53 | Progress Note ---
Assessment and Plan Atrial fibrillation with RVR - ? new onset; DDimer WNL>converted to S.R. JIMBO on ? CKD H/o HTN - currently with borderline hypotension HLP DM Mild LV dysfunction / diastolic dysfunction - EF 45-50% per echo 09/2016 H/o normal coronaries H/o hypothyroidism s/cp thyroidectomy Plan: F/u echo. will start PO anticoagulation. Change Amlodopine to PO diltiazem may d/c from cardiac point of view once renal function is stable. - Patient Problems (1) Atrial fibrillation with RVR Current Visit: Yes Status: Acute (2) Hypothyroid Current Visit: Yes Status: Acute Qualifiers: Hypothyroidism type: postoperative Qualified Code(s): E89.0 - Postprocedural hypothyroidism (3) Diabetes Current Visit: Yes Status: Chronic (4) HTN (hypertension) Current Visit: Yes Status: Chronic (5) Hyperlipidemia Current Visit: No Status: Chronic (6) Nonischemic cardiomyopathy Current Visit: No Status: Chronic Subjective Date of service: 09/10/17 Interval history: Patient feels better,in S.R,no chest pain. Objective Vital Signs Temp Pulse Resp BP BP Pulse Ox 09/10/17 10:00 76 100 09/10/17 09:55 79 128/70 09/10/17 09:54 76 128/70 09/10/17 09:53 76 128/70 09/10/17 09:10 97.9 F 76 16 128/70 99 09/10/17 05:25 97.8 F 66 20 137/70 99 09/10/17 02:00 77 09/10/17 00:39 98.0 F 66 20 135/80 99 09/09/17 20:26 99.6 F 73 18 139/74 97 09/09/17 18:59 61 09/09/17 17:22 96 09/09/17 17:21 98.0 F 61 20 107/69 100 09/09/17 16:31 118 H 23 106/55 97 09/09/17 16:21 123 H 16 97/67 97 09/09/17 16:11 109 H 17 102/71 98 09/09/17 16:00 111 H 17 102/71 98 09/09/17 15:51 117 H 28 H 105/63 97 09/09/17 15:41 121 H 25 H 119/62 97 09/09/17 15:30 114 H 25 H 119/62 98 09/09/17 15:21 135 H 16 115/69 98 09/09/17 15:11 120 H 20 106/70 99 09/09/17 15:09 110 H 106/70 09/09/17 15:00 108 H 21 106/70 97 09/09/17 14:51 118 H 24 96/78 89 09/09/17 14:41 105 H 25 H 105/72 96 09/09/17 14:30 124 H 17 105/72 95 09/09/17 14:15 133 H 26 H 119/50 95 09/09/17 14:01 139 H 20 105/68 97 - Physical Examination HEENT: Positive: PERRL, Normocephaly, Mucus Membranes Moist Neck: Positive: neck supple, trachea midline Cardiac: Positive: Reg Rate and Rhythm Lungs: Positive: clear to auscultation Neuro: Positive: Grossly Intact, Cranial Nerve 2-12 Intact Abdomen: Positive: Soft. Negative: Tender Skin: Positive: Clear. Negative: Rash, Wound Musculoskeletal: No Fluid Collection, No Pain, Normal Range of Motion Extremities: Present: normal. Absent: edema - Labs and Meds Coagulation 09/09/17 Range/Units 11:12 PT 12.4 (12.2-14.9) Sec. INR 0.88 (0.87-1.13) APTT 27.7 (24.2-36.6) Sec. - Imaging and Cardiology EKG: report reviewed, image reviewed Echo: report reviewed (09/2016 showed EF 45-50%, grade I diastolic dysfunction, minimal MR, mild AR, mild TR. ) Cardiac cath: report reviewed (09/2016 showed normal coronaries, EF 45-50%. )
[2017-09-10] MEDS: GLUCOPHAGE PO SCH (17:44)
[2017-09-10] MEDS: GLUCOTROL PO SCH (17:44)
[2017-09-10] MEDS: ELIQUIS PO SCH (21:54)
[2017-09-10] MEDS: HEPARIN/ 0.45% NACL-25,000 UNIT/500 ML 25,000 UNIT/500 ML BAG IV SCH (21:57)
[2017-09-11] MEDS: LASIX IV SCH (06:06)
[2017-09-11 07:14] LABS: Basophils # (Auto) 0.1 K/mm3 (0.0-0.1); Basophils % (Auto) 0.7 % (0.0-1.8); Eosinophils # (Auto) 0.4 K/mm3 (0.0-0.4); Hematocrit 39.7 % (30.3-42.9); Hemoglobin 12.3 gm/dl (10.1-14.3); Lymphocytes # (Auto) 3.4 K/mm3 (1.2-5.4); Lymphocytes % (Auto) 41.9 % (13.4-35.0); Mean Corpuscular HGB Conc 31 % (30-34); Mean Corpuscular Volume 77 fl (79-97); Monocytes # (Auto) 0.5 K/mm3 (0.0-0.8); Monocytes % (Auto) 5.9 % (0.0-7.3); Platelet Count 274 K/mm3 (140-440); Red Blood Count 5.12 M/mm3 (3.65-5.03); Red Cell Distribution Width 14.4 % (13.2-15.2)
[2017-09-11 07:15] LABS: Mean Corpuscular Hemoglobin 24 pg (28-32)
[2017-09-11 07:40] LABS: Calcium 9.2 mg/dL (8.4-10.2)
[2017-09-11] MEDS: GLUCOPHAGE PO SCH ×2 (08:36→17:18)
[2017-09-11] MEDS: GLUCOTROL PO SCH ×2 (08:36→17:18)
[2017-09-11] MEDS: FEOSOL PO SCH (09:24)
[2017-09-11] MEDS: CARDIZEM CD PO SCH (09:26)
[2017-09-11] MEDS: COREG PO SCH ×2 (09:27→22:55)
[2017-09-11] MEDS: PEPCID PO SCH ×2 (09:28→22:55)
[2017-09-11] MEDS: SYNTHROID PO SCH (09:29)
[2017-09-11] MEDS: ELIQUIS PO SCH ×2 (09:30→22:55)
[2017-09-11] MEDS: VITAMIN D3 PO SCH (09:30)
[2017-09-11] MEDS: BIDIL 20/37.5MG PO SCH ×3 (09:31→22:55)
[2017-09-11] MEDS: COZAAR PO SCH (09:32)
--- NOTE | 2017-09-11 10:15 | Progress Note ---
Assessment and Plan Assessment and plan: Atrial fibrillation with RVR - ? new onset; D-Dimer was within normal limits. Rate is controlled with amiodarone. Changed amiodarone to po diltiazem per cardiology. Continue heparin drip per cardiology. Cardiology started eliquis. Mild LV dysfunction / diastolic dysfunction - EF 45-50% per echo 09/2016. History of normal coronaries. JIMBO on ? CKD. Patient with baseline creatinine of 1.11 March 2016. Etiology likely secondary to vasomotor nephropathy/prerenal azotemia/dehydration Follow- up creatinine after IV fluid hydration. If no improvement in creatinine, we will obtain nephrology consultation and renal ultrasound. If creatinine continues to improve to baseline by tomorrow likely will discharge home. H/o HTN - currently with borderline hypotension. HLP. Continue Lipitor Hypothyroidism. Continue Synthroid. S/p thyroidectomy DM II. Continue Accu-Cheks and sliding scale insulin. DVT prophylaxis. Patient currently on heparin drip. History Interval history: Patient denies any chest pain or shortness of breath. Hospitalist Physical - Constitutional Vitals: Temp Pulse Resp BP Pulse Ox 98.6 F 87 18 124/75 98 09/11/17 04:51 09/11/17 09:32 09/11/17 04:51 09/11/17 09:32 09/11/17 08:57 General appearance: Present: no acute distress - EENT Eyes: Present: PERRL, EOM intact ENT: hearing intact, clear oral mucosa, dentition normal - Neck Neck: Present: supple, normal ROM - Respiratory Respiratory effort: normal Respiratory: bilateral: CTA - Cardiovascular Rhythm: regular Heart Sounds: Present: S1 & S2. Absent: gallop, rub - Extremities Extremities: no ischemia, No edema, Full ROM - Abdominal General gastrointestinal: soft, non-tender, non-distended, normal bowel sounds - Integumentary Integumentary: Present: clear, warm, dry - Neurologic Neurologic: CNII-XII intact, moves all extremities Results - Labs CBC & Chem 7: 09/11/17 06:59 09/11/17 06:59 Labs: Laboratory Last Values WBC 8.1 K/mm3 (4.5-11.0) 09/11/17 06:59 RBC 5.12 M/mm3 (3.65-5.03) H 09/11/17 06:59 Hgb 12.3 gm/dl (10.1-14.3) 09/11/17 06:59 Hct 39.7 % (30.3-42.9) 09/11/17 06:59 MCV 77 fl (79-97) L 09/11/17 06:59 MCH 24 pg (28-32) L 09/11/17 06:59 MCHC 31 % (30-34) 09/11/17 06:59 RDW 14.4 % (13.2-15.2) 09/11/17 06:59 Plt Count 274 K/mm3 (140-440) 09/11/17 06:59 Lymph % (Auto) 41.9 % (13.4-35.0) H 09/11/17 06:59 [place] % (Auto) 5.9 % (0.0-7.3) 09/11/17 06:59 Eos % (Auto) 5.0 % (0.0-4.3) H 09/11/17 06:59 Baso % (Auto) 0.7 % (0.0-1.8) 09/11/17 06:59 Lymph # 3.4 K/mm3 (1.2-5.4) 09/11/17 06:59 [place] # 0.5 K/mm3 (0.0-0.8) 09/11/17 06:59 Eos # 0.4 K/mm3 (0.0-0.4) 09/11/17 06:59 Baso # 0.1 K/mm3 (0.0-0.1) 09/11/17 06:59 Seg Neutrophils % 46.5 % (40.0-70.0) 09/11/17 06:59 Seg Neutrophils # 3.8 K/mm3 (1.8-7.7) 09/11/17 06:59 PT 12.4 Sec. (12.2-14.9) 09/09/17 11:12 INR 0.88 (0.87-1.13) 09/09/17 11:12 APTT 27.7 Sec. (24.2-36.6) 09/09/17 11:12 D-Dimer < 135.00 ng/mlDDU (0-234) 09/09/17 11:12 Heparin Anti-Xa Level 2.00 U.I./ml (0.3-0.7) H 09/11/17 06:59 Sodium 142 mmol/L (137-145) 09/11/17 06:59 Potassium 4.0 mmol/L (3.6-5.0) 09/11/17 06:59 Chloride 99.8 mmol/L (98-107) 09/11/17 06:59 Carbon Dioxide 25 mmol/L (22-30) 09/11/17 06:59 Anion Gap 21 mmol/L 09/11/17 06:59 BUN 25 mg/dL (7-17) H 09/11/17 06:59 Creatinine 1.5 mg/dL (0.7-1.2) H 09/11/17 06:59 Estimated GFR 43 ml/min 09/11/17 06:59 BUN/Creatinine Ratio 17 % 09/11/17 06:59 Glucose 165 mg/dL (65-100) H 09/11/17 06:59 POC Glucose 149 (70-105) H 09/11/17 07:01 Calcium 9.2 mg/dL (8.4-10.2) 09/11/17 06:59 Magnesium 1.50 mg/dL (1.7-2.3) L 09/09/17 11:12 Troponin T < 0.010 ng/mL (0.00-0.029) 09/09/17 19:29 NT-Pro-B Natriuret Pep 360.9 pg/mL (0-900) 09/09/17 11:12 TSH 0.837 mlU/mL (0.270-4.200) 09/09/17 11:12 Free T4 1.05 ng/dL (0.76-1.46) 09/09/17 11:12
--- NOTE | 2017-09-11 14:26 | Progress Note ---
Assessment and Plan Atrial fibrillation with RVR - ? new onset; DDimer WNL>converted to S.R. JIMBO on ? CKD H/o HTN - currently with borderline hypotension HLP DM Mild LV dysfunction / diastolic dysfunction - EF 45-50% per echo 09/2016 H/o normal coronaries H/o hypothyroidism s/cp thyroidectomy Plan: F/u echo. will start PO anticoagulation. Change Amlodopine to PO diltiazem may d/c from cardiac point of view once renal function is stable. 09/11/2017>patient in S.R,on Eliquis since yesterday,cardiac jacobsen stable,may be discharged home on present meds including Eliquis. B.P is under control on present meds. - Patient Problems (1) Atrial fibrillation with RVR Current Visit: Yes Status: Acute (2) Hypothyroid Current Visit: Yes Status: Acute Qualifiers: Hypothyroidism type: postoperative Qualified Code(s): E89.0 - Postprocedural hypothyroidism (3) Diabetes Current Visit: Yes Status: Chronic (4) HTN (hypertension) Current Visit: Yes Status: Chronic (5) Hyperlipidemia Current Visit: No Status: Chronic (6) Nonischemic cardiomyopathy Current Visit: No Status: Chronic Subjective Date of service: 09/11/17 Interval history: Patient feels better,in S.R,no chest pain. 09/11/2017>no new complaints. Objective Vital Signs Temp Pulse Resp BP Pulse Ox 09/11/17 12:50 74 09/11/17 09:32 87 124/75 09/11/17 09:31 87 124/75 09/11/17 09:27 88 124/75 09/11/17 09:26 88 124/75 09/11/17 08:57 98 09/11/17 04:51 98.6 F 75 18 138/80 97 09/11/17 02:00 90 09/10/17 23:53 97.8 F 91 H 20 130/79 97 09/10/17 22:00 18 09/10/17 21:54 118/78 09/10/17 21:53 87 118/78 09/10/17 20:08 98.4 F 87 20 118/72 97 09/10/17 16:14 97.3 F L 75 18 147/82 100 - Physical Examination HEENT: Positive: PERRL, Normocephaly, Mucus Membranes Moist Neck: Positive: neck supple, trachea midline Cardiac: Positive: Regular Rhythm Lungs: Positive: clear to auscultation Neuro: Positive: Grossly Intact, Cranial Nerve 2-12 Intact Abdomen: Positive: Soft. Negative: Tender Skin: Positive: Clear. Negative: Rash, Wound Musculoskeletal: No Fluid Collection, No Pain, Normal Range of Motion Extremities: Present: normal. Absent: edema - Labs and Meds CBC 09/11/17 Range/Units 06:59 WBC 8.1 (4.5-11.0) K/mm3 RBC 5.12 H (3.65-5.03) M/mm3 Hgb 12.3 (10.1-14.3) gm/dl Hct 39.7 (30.3-42.9) % Plt Count 274 (140-440) K/mm3 Lymph # 3.4 (1.2-5.4) K/mm3 [place] # 0.5 (0.0-0.8) K/mm3 Eos # 0.4 (0.0-0.4) K/mm3 Baso # 0.1 (0.0-0.1) K/mm3 Comprehensive Metabolic Panel 09/11/17 Range/Units 06:59 Sodium 142 (137-145) mmol/L Potassium 4.0 (3.6-5.0) mmol/L Chloride 99.8 (98-107) mmol/L Carbon Dioxide 25 (22-30) mmol/L BUN 25 H (7-17) mg/dL Creatinine 1.5 H (0.7-1.2) mg/dL Glucose 165 H (65-100) mg/dL Calcium 9.2 (8.4-10.2) mg/dL - Imaging and Cardiology EKG: report reviewed, image reviewed Echo: report reviewed (09/2016 showed EF 45-50%, grade I diastolic dysfunction, minimal MR, mild AR, mild TR. ) Cardiac cath: report reviewed (09/2016 showed normal coronaries, EF 45-50%. ) - Telemetry EKG Rhythm: Sinus Rhythm
[2017-09-11] MEDS: SODIUM CHLORIDE FLUSH SYRINGE 10 ML IV SCH ×2 (17:26→22:55)
[2017-09-12] MEDS: LASIX IV SCH ×2 (06:50→18:27)
[2017-09-12 07:02] LABS: Hematocrit 37.6 % (30.3-42.9); Hemoglobin 12.1 gm/dl (10.1-14.3); Mean Corpuscular HGB Conc 32 % (30-34); Mean Corpuscular Volume 76 fl (79-97); Platelet Count 243 K/mm3 (140-440); Red Blood Count 4.92 M/mm3 (3.65-5.03); Red Cell Distribution Width 14.4 % (13.2-15.2)
[2017-09-12 07:09] LABS: Mean Corpuscular Hemoglobin 25 pg (28-32)
[2017-09-12 07:18] LABS: Calcium 9.1 mg/dL (8.4-10.2)
[2017-09-12 08:05] LABS: Basophils % (Manual) 0 % (0.0-1.8); Total Cells Counted 100
[2017-09-12 08:06] LABS: Anisocytosis 1+; Hypochromasia 1+; Large Platelets Few; Platelet Estimate Cons
[2017-09-12] MEDS: HEPARIN/ 0.45% NACL-25,000 UNIT/500 ML 25,000 UNIT/500 ML BAG IV SCH (09:11)
--- NOTE | 2017-09-12 09:29 | Progress Note ---
Assessment and Plan Atrial fibrillation with RVR - ? new onset; D-Dimer was within normal limits. Rate is controlled with amiodarone. Changed amiodarone to po diltiazem per cardiology. Continue heparin drip per cardiology. Cardiology started eliquis. Mild LV dysfunction / diastolic dysfunction - EF 45-50% per echo 09/2016. History of normal coronaries. JIMBO on ? CKD. Patient with baseline creatinine of 1.11 March 2016. Etiology likely secondary to vasomotor nephropathy/prerenal azotemia/dehydration Follow- up creatinine after IV fluid hydration. If no improvement in creatinine, we will obtain nephrology consultation and renal ultrasound. If creatinine continues to improve to baseline by tomorrow likely will discharge home. H/o HTN - currently with borderline hypotension. HLP. Continue Lipitor Hypothyroidism. Continue Synthroid. S/p thyroidectomy DM II. Continue Accu-Cheks and sliding scale insulin. DVT prophylaxis. Patient currently on heparin drip. Subjective Date of service: 09/12/17 Principal diagnosis: Afib with RVR, distolic HF Interval history: still having palpitaion Objective - Constitutional Vitals: Vital Signs - 12hr 09/11/17 09/12/17 09/12/17 22:55 00:10 04:00 Temperature 98.1 F Pulse Rate 85 69 69 Respiratory 18 Rate Blood Pressure 113/68 126/71 O2 Sat by Pulse 97 Oximetry 09/12/17 06:00 Temperature 98.5 F Pulse Rate 69 Respiratory 18 Rate Blood Pressure 122/70 O2 Sat by Pulse 96 Oximetry General appearance: Present: no acute distress, well-nourished - EENT Eyes: PERRL, EOM intact ENT: hearing intact, clear oral mucosa Ears: left: bulging - Neck Neck: supple, normal ROM - Respiratory Respiratory effort: normal Respiratory: bilateral: CTA - Breasts Breasts: normal - Cardiovascular Rhythm: regular Heart Sounds: Present: S1 & S2. Absent: gallop, rub Extremities: pulses intact, No edema, normal color, Full ROM - Gastrointestinal General gastrointestinal: Present: soft, non-tender, non-distended, normal bowel sounds - Genitourinary Female genitourinary: normal - Integumentary Integumentary: clear, warm, dry - Musculoskeletal Musculoskeletal: 1, strength equal bilaterally - Neurologic Neurologic: moves all extremities - Psychiatric Psychiatric: memory intact, appropriate mood/affect, intact judgment & insight - Labs CBC & Chem 7: 09/12/17 06:35 09/12/17 06:35 Labs: Abnormal lab results 09/11/17 09/12/17 09/12/17 Range/Units 21:01 06:35 06:35 MCV 76 L (79-97) fl MCH 25 L (28-32) pg Lymphocytes % (Manual) 50.0 H (13.4-35.0) % Heparin Anti-Xa Level 2.00 H (0.3-0.7) U.I./ml BUN 34 H (7-17) mg/dL Creatinine 2.0 H (0.7-1.2) mg/dL Glucose 106 H (65-100) mg/dL 09/12/17 Range/Units 06:35 MCV (79-97) fl MCH (28-32) pg Lymphocytes % (Manual) (13.4-35.0) % Heparin Anti-Xa Level > 2.00 H (0.3-0.7) U.I./ml BUN (7-17) mg/dL Creatinine (0.7-1.2) mg/dL Glucose (65-100) mg/dL
[2017-09-12] MEDS: BIDIL 20/37.5MG PO SCH ×4 (10:00→21:41)
[2017-09-12] MEDS: GLUCOTROL PO SCH ×4 (10:45→18:26)
[2017-09-12] MEDS: SYNTHROID PO SCH (10:46)
[2017-09-12] MEDS: ELIQUIS PO SCH ×2 (10:47→21:41)
[2017-09-12] MEDS: PEPCID PO SCH ×2 (10:47→21:41)
[2017-09-12] MEDS: FEOSOL PO SCH (10:47)
[2017-09-12] MEDS: VITAMIN D3 PO SCH (10:48)
[2017-09-12] MEDS: CARDIZEM CD PO SCH (10:52)
[2017-09-12] MEDS: COZAAR PO SCH (10:53)
[2017-09-12] MEDS: COREG PO SCH ×2 (10:54→21:41)
[2017-09-12] MEDS: SODIUM CHLORIDE FLUSH SYRINGE 10 ML IV SCH ×2 (10:54→21:42)
[2017-09-12] MEDS: GLUCOPHAGE PO SCH (11:04)
[2017-09-12] MEDS: PERCOCET 5/325 PO PRN (14:59)
[2017-09-12] MEDS: NACL 0.9% 1000 ML 1,000 ML IV SCH (14:59)
[2017-09-12 15:40] LABS: Bacteria,Urine 1+ /HPF (Negative); Bilirubin,Urine NEG (Negative); Blood,Urine NEG (Negative); Color,Urine Yellow (Yellow); Mucus,Urine FEW /HPF; Protein,Urine <15 mg/dL mg/dL (Negative); RBC,Urine < 1.0 /HPF (0.0-6.0); Urobilinogen,Urine < 2.0 mg/dL (<2.0)
[2017-09-13] MEDS: NACL 0.9% 1000 ML 1,000 ML IV SCH ×3 (01:05→22:18)
[2017-09-13] MEDS: LASIX IV SCH ×2 (05:30→18:29)
[2017-09-13 07:33] LABS: Basophils % (Auto) 0.5 % (0.0-1.8); Eosinophils # (Auto) 0.5 K/mm3 (0.0-0.4); Eosinophils % (Auto) 5.4 % (0.0-4.3); Hematocrit 35.5 % (30.3-42.9); Hemoglobin 11.1 gm/dl (10.1-14.3); Lymphocytes % (Auto) 46.4 % (13.4-35.0); Mean Corpuscular HGB Conc 31 % (30-34); Mean Corpuscular Volume 77 fl (79-97); Monocytes # (Auto) 0.5 K/mm3 (0.0-0.8); Platelet Count 238 K/mm3 (140-440); Red Blood Count 4.63 M/mm3 (3.65-5.03)
[2017-09-13 07:34] LABS: Mean Corpuscular Hemoglobin 24 pg (28-32)
[2017-09-13 07:59] LABS: Calcium 8.7 mg/dL (8.4-10.2)
[2017-09-13] MEDS: COZAAR PO SCH ×2 (09:00→18:28)
--- NOTE | 2017-09-13 09:16 | Ultrasound Report ---
FINAL REPORT EXAM: US RENAL BILAT HISTORY: Acute renal failure COMPARISON: None. TECHNIQUE: Grayscale and Doppler imaging of the kidneys was performed. FINDINGS: The right kidney measures 10.2 x 5.3 x 3.8 centimeters. There is normal cortical thickness of 1.1 centimeters. There is normal echogenicity. There is no hydronephrosis. There is no echogenic focus or mass. The left kidney measures 10.4 x 6.5 x 5.1 centimeters. There is normal cortical thickness of 1.4 centimeters. There is normal echogenicity. There is no hydronephrosis. There are scattered echogenic foci throughout the left kidney. IMPRESSION: Scattered echogenic foci within the left kidney that may represent scarring versus calcifications. Normal sonographic appearance of the right kidney.
[2017-09-13] MEDS: SYNTHROID PO SCH (09:42)
[2017-09-13] MEDS: COREG PO SCH ×2 (09:43→22:17)
[2017-09-13] MEDS: PEPCID PO SCH ×2 (09:43→22:16)
[2017-09-13] MEDS: ELIQUIS PO SCH ×2 (09:44→22:17)
[2017-09-13] MEDS: VITAMIN D3 PO SCH (09:44)
[2017-09-13] MEDS: FEOSOL PO SCH (09:44)
[2017-09-13] MEDS: GLUCOTROL PO SCH ×3 (09:45→18:30)
[2017-09-13] MEDS: BIDIL 20/37.5MG PO SCH ×3 (09:47→21:00)
[2017-09-13] MEDS: CARDIZEM CD PO SCH (09:48)
--- NOTE | 2017-09-13 09:51 | Progress Note ---
Assessment and Plan Assessment and plan: Atrial fibrillation with RVR - new onset; D-Dimer was within normal limits. Rate is controlled with amiodarone. Changed amiodarone to po diltiazem per cardiology. treated with heparin drip and currently on eliquis. Mild LV dysfunction / diastolic dysfunction - EF 45-50% per echo 09/2016. History of normal coronaries. JIMBO on ? CKD. Patient with baseline creatinine of 1.11 March 2016. Etiology likely secondary to vasomotor nephropathy/prerenal azotemia/dehydration. Nephrology consulted. H/o HTN - BP is on the lower side of normal. HLP. Continue Lipitor Hypothyroidism. Continue Synthroid. S/p thyroidectomy DM II. Continue Accu-Cheks and sliding scale insulin. DVT prophylaxis. Patient currently on Eliquis. Possible DC after evaluated by Nephrology History Interval history: Patient was seen and evaluated this morning, patient didn't have any new complaints. Hospitalist Physical - Constitutional Vitals: Temp Pulse Resp BP Pulse Ox 97.7 F 62 18 101/52 96 09/13/17 04:37 09/13/17 04:38 09/13/17 04:37 09/13/17 04:37 09/13/17 04:38 General appearance: Present: no acute distress, well-nourished - EENT ENT: clear oral mucosa - Neck Neck: Present: supple, normal ROM - Respiratory Respiratory effort: normal Respiratory: bilateral: CTA - Cardiovascular Rhythm: irregularly irregular - Extremities Extremities: no ischemia Extremity abnormal: edema - Abdominal General gastrointestinal: soft, non-tender, non-distended - Integumentary Integumentary: Present: clear, warm, dry - Neurologic Neurologic: CNII-XII intact - Allied Health Allied health notes reviewed: social work Results - Labs CBC & Chem 7: 09/13/17 07:07 09/13/17 07:07 Labs: Laboratory Last Values WBC 8.7 K/mm3 (4.5-11.0) 09/13/17 07:07 RBC 4.63 M/mm3 (3.65-5.03) 09/13/17 07:07 Hgb 11.1 gm/dl (10.1-14.3) 09/13/17 07:07 Hct 35.5 % (30.3-42.9) 09/13/17 07:07 MCV 77 fl (79-97) L 09/13/17 07:07 MCH 24 pg (28-32) L 09/13/17 07:07 MCHC 31 % (30-34) 09/13/17 07:07 RDW 14.0 % (13.2-15.2) 09/13/17 07:07 Plt Count 238 K/mm3 (140-440) 09/13/17 07:07 Lymph % (Auto) 46.4 % (13.4-35.0) H 09/13/17 07:07 [place] % (Auto) 6.0 % (0.0-7.3) 09/13/17 07:07 Eos % (Auto) 5.4 % (0.0-4.3) H 09/13/17 07:07 Baso % (Auto) 0.5 % (0.0-1.8) 09/13/17 07:07 Lymph # 4.0 K/mm3 (1.2-5.4) 09/13/17 07:07 [place] # 0.5 K/mm3 (0.0-0.8) 09/13/17 07:07 Eos # 0.5 K/mm3 (0.0-0.4) H 09/13/17 07:07 Baso # 0.0 K/mm3 (0.0-0.1) 09/13/17 07:07 Add Manual Diff Complete 09/12/17 06:35 Total Counted 100 09/12/17 06:35 Seg Neutrophils % 41.7 % (40.0-70.0) 09/13/17 07:07 Seg Neuts % (Manual) 41.0 % (40.0-70.0) 09/12/17 06:35 Band Neutrophils % 0 % 09/12/17 06:35 Lymphocytes % (Manual) 50.0 % (13.4-35.0) H 09/12/17 06:35 Reactive Lymphs % (Man) 0 % 09/12/17 06:35 Monocytes % (Manual) 5.0 % (0.0-7.3) 09/12/17 06:35 Eosinophils % (Manual) 4.0 % (0.0-4.3) 09/12/17 06:35 Basophils % (Manual) 0 % (0.0-1.8) 09/12/17 06:35 Metamyelocytes % 0 % 09/12/17 06:35 Myelocytes % 0 % 09/12/17 06:35 Promyelocytes % 0 % 09/12/17 06:35 Blast Cells % 0 % 09/12/17 06:35 Nucleated RBC % Not Reportable 09/12/17 06:35 Seg Neutrophils # 3.6 K/mm3 (1.8-7.7) 09/13/17 07:07 Seg Neutrophils # Man 3.7 K/mm3 (1.8-7.7) 09/12/17 06:35 Band Neutrophils # 0.0 K/mm3 09/12/17 06:35 Lymphocytes # (Manual) 4.5 K/mm3 (1.2-5.4) 09/12/17 06:35 Abs React Lymphs (Man) 0.0 K/mm3 09/12/17 06:35 Monocytes # (Manual) 0.5 K/mm3 (0.0-0.8) 09/12/17 06:35 Eosinophils # (Manual) 0.4 K/mm3 (0.0-0.4) 09/12/17 06:35 Basophils # (Manual) 0.0 K/mm3 (0.0-0.1) 09/12/17 06:35 Metamyelocytes # 0.0 K/mm3 09/12/17 06:35 Myelocytes # 0.0 K/mm3 09/12/17 06:35 Promyelocytes # 0.0 K/mm3 09/12/17 06:35 Blast Cells # 0.0 K/mm3 09/12/17 06:35 WBC Morphology Not Reportable 09/12/17 06:35 Hypersegmented Neuts Not Reportable 09/12/17 06:35 Hyposegmented Neuts Not Reportable 09/12/17 06:35 Hypogranular Neuts Not Reportable 09/12/17 06:35 Smudge Cells Not Reportable 09/12/17 06:35 Toxic Granulation Not Reportable 09/12/17 06:35 Toxic Vacuolation Not Reportable 09/12/17 06:35 Dohle Bodies Not Reportable 09/12/17 06:35 Pelger-Huet Anomaly Not Reportable 09/12/17 06:35 Dillan Rods Not Reportable 09/12/17 06:35 Platelet Estimate Cons 09/12/17 06:35 Clumped Platelets Not Reportable 09/12/17 06:35 Plt Clumps, EDTA Not Reportable 09/12/17 06:35 Large Platelets Few 09/12/17 06:35 Giant Platelets Not Reportable 09/12/17 06:35 Platelet Satelliting Not Reportable 09/12/17 06:35 Plt Morphology Comment Not Reportable 09/12/17 06:35 RBC Morphology Not Reportable 09/12/17 06:35 Dimorphic RBCs Not Reportable 09/12/17 06:35 Polychromasia Not Reportable 09/12/17 06:35 Hypochromasia 1+ 09/12/17 06:35 Poikilocytosis Not Reportable 09/12/17 06:35 Anisocytosis 1+ 09/12/17 06:35 Microcytosis Not Reportable 09/12/17 06:35 Macrocytosis Not Reportable 09/12/17 06:35 Spherocytes Not Reportable 09/12/17 06:35 Pappenheimer Bodies Not Reportable 09/12/17 06:35 Sickle Cells Not Reportable 09/12/17 06:35 Target Cells Not Reportable 09/12/17 06:35 Tear Drop Cells Not Reportable 09/12/17 06:35 Ovalocytes Not Reportable 09/12/17 06:35 Helmet Cells Not Reportable 09/12/17 06:35 Helm-Hyde Bodies Not Reportable 09/12/17 06:35 [place] Rings Not Reportable 09/12/17 06:35 [place] Cells Not Reportable 09/12/17 06:35 Bite Cells Not Reportable 09/12/17 06:35 Crenated Cell Not Reportable 09/12/17 06:35 Elliptocytes Not Reportable 09/12/17 06:35 Acanthocytes (Spur) Not Reportable 09/12/17 06:35 Rouleaux Not Reportable 09/12/17 06:35 Hemoglobin C Crystals Not Reportable 09/12/17 06:35 Schistocytes Not Reportable 09/12/17 06:35 Malaria parasites Not Reportable 09/12/17 06:35 Stevie Bodies Not Reportable 09/12/17 06:35 Hem Pathologist Commnt No 09/12/17 06:35 PT 12.4 Sec. (12.2-14.9) 09/09/17 11:12 INR 0.88 (0.87-1.13) 09/09/17 11:12 APTT 27.7 Sec. (24.2-36.6) 09/09/17 11:12 D-Dimer < 135.00 ng/mlDDU (0-234) 09/09/17 11:12 Heparin Anti-Xa Level 2.00 U.I./ml (0.3-0.7) H 09/12/17 15:17 Sodium 142 mmol/L (137-145) 09/13/17 07:07 Potassium 4.3 mmol/L (3.6-5.0) 09/13/17 07:07 Chloride 103.5 mmol/L (98-107) 09/13/17 07:07 Carbon Dioxide 23 mmol/L (22-30) 09/13/17 07:07 Anion Gap 20 mmol/L 09/13/17 07:07 BUN 37 mg/dL (7-17) H 09/13/17 07:07 Creatinine 2.0 mg/dL (0.7-1.2) H 09/13/17 07:07 Estimated GFR 31 ml/min 09/13/17 07:07 BUN/Creatinine Ratio 19 % 09/13/17 07:07 Glucose 112 mg/dL (65-100) H 09/13/17 07:07 POC Glucose 122 (70-105) H 09/13/17 06:30 Calcium 8.7 mg/dL (8.4-10.2) 09/13/17 07:07 Magnesium 1.50 mg/dL (1.7-2.3) L 09/09/17 11:12 Troponin T < 0.010 ng/mL (0.00-0.029) 09/09/17 19:29 NT-Pro-B Natriuret Pep 360.9 pg/mL (0-900) 09/09/17 11:12 TSH 0.837 mlU/mL (0.270-4.200) 09/09/17 11:12 Free T4 1.05 ng/dL (0.76-1.46) 09/09/17 11:12 Urine Color Yellow (Yellow) 09/12/17 Unknown Urine Turbidity Clear (Clear) 09/12/17 Unknown Urine pH 5.0 (5.0-7.0) 09/12/17 Unknown Ur Specific [place] 1.013 (1.003-1.030) 09/12/17 Unknown Urine Protein <15 mg/dl mg/dL (Negative) 09/12/17 Unknown Urine Glucose (UA) Neg mg/dL (Negative) 09/12/17 Unknown Urine Ketones Neg mg/dL (Negative) 09/12/17 Unknown Urine Blood Neg (Negative) 09/12/17 Unknown Urine Nitrite Neg (Negative) 09/12/17 Unknown Urine Bilirubin Neg (Negative) 09/12/17 Unknown Urine Urobilinogen < 2.0 mg/dL (<2.0) 09/12/17 Unknown Ur Leukocyte Esterase Neg (Negative) 09/12/17 Unknown Urine WBC (Auto) 1.0 /HPF (0.0-6.0) 09/12/17 Unknown Urine RBC (Auto) < 1.0 /HPF (0.0-6.0) 09/12/17 Unknown U Epithel Cells (Auto) 1.0 /HPF (0-13.0) 09/12/17 Unknown Urine Bacteria (Auto) 1+ /HPF (Negative) 09/12/17 Unknown Urine Mucus Few /HPF 09/12/17 Unknown
[2017-09-13] MEDS: SODIUM CHLORIDE FLUSH SYRINGE 10 ML IV SCH ×2 (11:45→22:17)
--- NOTE | 2017-09-13 19:44 | Consultation ---
History of Present Illness - Reason for Consult Consult date: 09/13/17 acute renal failure Requesting physician: HERMILO VARMA - History of Present Illness 61-year-old lady who is not known to me presented with dizziness palpitations and chest pressure of 1 day duration. Patient's describes the chest pain as sharp and sometimes a heaviness in the left side of her chest which was of moderate intensity and nonradiating associated with shortness of breath and diaphoresis. Her blood pressure dropped was last 60/40 mmHg and so patient came to the hospital for evaluation. On presentation in the emergency room, she was found to be in atrial fibrillation with rapid ventricular rate 130 to 150s. BUN and creatinine found to be in its 32/1.9 mg/dL. Creatinine has stayed around 2 mg/dL since then. Off note in March 2016, her creatinine was 1.3 mg/dL. I'm consulted to assist in managing this. Patient was started on heparin and then transitioned to anticoagulation by mouth. She also received amiodarone for rate control and it was started on oral diltiazem. She denies any history of recurrent kidney infections. She does admit to having kidney stones about a year ago for which she had cystoscopy and retrograde pyelogram. She has not had flank pain or hematuria recently. No recent exposure to contrast and she has not been using nonsteroidal anti-inflammatory drugs. She recently had labs done by her primary care physician Dr. Pat Ward at [facility] . 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 denies: alcohol abuse, prescription drug abuse Family history: CAD (one brother of possibly a heart attack at age 63), cancer ( of prostate cancer at age 90), diabetes (one brother and one sister have diabetes mellitus. No family history of kidney disease), hypertension, stroke (mother of a stroke at age 62) Medications and Allergies Allergies Allergy/AdvReac Type Severity Reaction Status Date / Time No Known Allergies Allergy Verified 04/21/16 12:33 Home Medications Medication Instructions Recorded Confirmed Last Taken Type Aspirin 81 mg PO DAILY 03/26/16 09/09/17 09/23/16 History Carvedilol [Coreg] 25 mg PO BID 03/26/16 09/09/17 09/09/17 History glipiZIDE [Glucotrol] 10 mg PO BID 03/26/16 09/09/17 09/23/16 History metFORMIN [Glucophage] 1,000 mg PO BID 03/26/16 09/09/17 09/23/16 History oxyCODONE /ACETAMINOPHEN [Percocet 1 tab PO BID PRN 03/26/16 09/09/17 09/23/16 History 5/325 mg] AtorvaSTATin [Lipitor] 10 mg PO DAILY 09/24/16 09/09/17 09/23/16 History Isosorbibe Dinit/Hydralazine 1 tab PO TID 09/24/16 09/09/17 09/24/16 08:30 History [Bidil Tablet] Levothyroxine [Synthroid] 75 mcg PO QAM 09/24/16 09/09/17 09/23/16 History Amlodipine Besylate [Norvasc] 5 mg PO QDAY 09/09/17 09/09/17 Unknown History Cholecalciferol (Vitamin D3) 1,000 unit PO QDAY 09/09/17 09/09/17 Unknown History [Vitamin D3] Ferrous Sulfate [Iron] 325 mg PO QDAY 09/09/17 09/09/17 Unknown History Losartan [Cozaar] 100 mg PO QDAY 09/09/17 09/09/17 09/09/17 History Ranitidine HCl [Zantac 150 MG TAB] 150 mg PO QDAY 09/09/17 09/09/17 Unknown History Active Meds: Active Medications Acetaminophen (Tylenol) 650 mg PO Q4H PRN PRN Reason: Pain MILD(1-3)/Fever >100.5/FOX Last Admin: 09/12/17 00:37 Dose: 650 mg Albuterol (Proventil) 2.5 mg IH Q4HRT PRN PRN Reason: Shortness Of Breath Apixaban (Eliquis) 5 mg PO Q12HR [facility]; Protocol Last Admin: 09/13/17 09:44 Dose: 5 mg Atorvastatin Calcium (Lipitor) 10 mg PO DAILY [facility] Last Admin: 09/13/17 09:43 Dose: 10 mg Carvedilol (Coreg) 25 mg PO BID [facility] Last Admin: 09/13/17 09:43 Dose: 25 mg Cholecalciferol (Vitamin D3) 1,000 unit PO QDAY [facility] Last Admin: 09/13/17 09:44 Dose: 1,000 unit Diltiazem HCl (Cardizem Cd) 120 mg PO QDAY [facility] Last Admin: 09/13/17 09:48 Dose: 120 mg Famotidine (Pepcid) 20 mg PO BID [facility] Last Admin: 09/13/17 09:43 Dose: 20 mg Ferrous Sulfate (Feosol) 325 mg PO QDAY [facility] Last Admin: 09/13/17 09:44 Dose: 325 mg Glipizide (Glucotrol) 10 mg PO BIDDIAB [facility] Last Admin: 09/13/17 18:30 Dose: Not Given Sodium Chloride (Nacl 0.9% 1000 Ml) 1,000 mls @ 100 mls/hr IV DIRECT [facility] Last Admin: 09/13/17 11:44 Dose: 100 mls/hr Isosorbide Dinitrate/Hydralazine (Bidil 20/37.5mg) 1 each PO TID [facility] Last Admin: 09/13/17 14:20 Dose: Not Given Levothyroxine Sodium (Synthroid) 75 mcg PO QAM [facility] Last Admin: 09/13/17 09:42 Dose: 75 mcg Morphine Sulfate (Morphine) 2 mg IV Q4H PRN PRN Reason: Pain, Moderate (4-6) Nitroglycerin (Nitrostat) 0.4 mg SL Q5M PRN PRN Reason: Chest Pain Ondansetron HCl (Zofran) 4 mg IV Q8H PRN PRN Reason: Nausea And Vomiting Oxycodone/Acetaminophen (Percocet 5/325) 1 tab PO BID PRN PRN Reason: Pain, Moderate (4-6) Last Admin: 09/12/17 14:59 Dose: 1 tab Sodium Chloride (Sodium Chloride Flush Syringe 10 Ml) 10 ml IV BID [facility] Last Admin: 09/13/17 11:45 Dose: Not Given Sodium Chloride (Sodium Chloride Flush Syringe 10 Ml) 10 ml IV PRN PRN PRN Reason: LINE FLUSH Review of Systems All systems: negative (Constitutional: no fever or chills. No anorexia or weight loss. HEENT: No sore throat or sinus drainage no hearing or vision impairment . Cardiovascular: See history of present illness. No lower extremity swelling Respiratory: No cough, sputum, shortness of breath, hemoptysis or wheezing. Gastrointestinal: No nausea, vomiting, she had diarrhea on presentation. No abdominal pain, hematemesis or melena. Genitourinary: No frequency urgency dysuria or hematuria. hematologic: No abnormal bleeding or bruising. Integumentary: no pruritus or rash. Neurological : No headache no focal weakness or numbness, no syncope or seizures. Admits to dizziness. Endocrine: Admits to heat intolerance. No cold intolerance Musculoskeletal: No joint pains no stiffness. Psychiatry: no anxiety or depression) Exam - Vital Signs Vital signs: Vital Signs Temp Pulse BP Pulse Ox 98.7 F 74 124/74 98 09/09/17 11:03 09/09/17 11:03 09/09/17 11:03 09/09/17 11:03 - Physical Exam Narrative exam: Middle aged -[place]ian female lying in bed in no acute distress HEENT: NCAT, pink oral mucous membrane Neck: Supple, no venous distention CVS: S1S2 RRR with no murmur, rub or gallop Chest: Clear to auscultation Abdomen: Protuberant, soft, nontender, no organomegaly, bowel sounds are present Extremities: No edema, No clubbing Skin warm and dry, no rash Neuro: Awake, alert no focal deficits Results - Lab Results 09/13/17 07:07 09/13/17 07:07 Most recent lab results Calcium 8.7 mg/dL (8.4-10.2) 09/13/17 07:07 Magnesium 1.50 mg/dL (1.7-2.3) L 09/09/17 11:12 Assessment and Plan - Patient Problems (1) Acute kidney injury Current Visit: Yes Status: Acute Plan to address problem: Acute kidney injury probably multifactorial. I suspect prerenal azotemia versus acute tubular necrosis secondary to hypotension on presentation. Patient also receiving diuretics and angiotensin receptor sherman with borderline low blood pressures which may be contributing. Will also request labs drawn last week by primary care physician to ascertain baseline kidney function. Will hold diuretics and angiotensin receptor sherman. Quantify proteinuria present. Check urine Eosinophils. Follow-up electrolytes and renal function. If kidney function is better tomorrow, patient can be discharged and followed up as an outpatient. (2) Chronic kidney disease, stage III (moderate) Current Visit: Yes Status: Acute Plan to address problem: Suspect baseline stage III chronic disease secondary to diabetic nephropathy/ hypertensive nephrosclerosis. (3) Type 2 diabetes mellitus Current Visit: Yes Status: Acute Plan to address problem: Long-standing history of type 2 diabetes mellitus. Blood sugar management by primary attending Karen (4) Chronic systolic heart failure Current Visit: Yes Status: Acute Plan to address problem: Stable volume status. We need to hold angiotensin receptor sherman in the setting of hypotension and worsening kidney function. Rechallenge when blood pressure and kidney function stable (5) Hypotension Current Visit: Yes Status: Acute Plan to address problem: Hold Lasix and angiotensin receptor sherman. Follow blood pressure tomorrow. We'll probably resume Lasix at a lower dose and rechallenge with angiotensin receptor sherman as an outpatient.
[2017-09-13] MEDS: PERCOCET 5/325 PO PRN (22:58)
[2017-09-14 07:05] LABS: Calcium 8.4 mg/dL (8.4-10.2)
[2017-09-14] MEDS: ELIQUIS PO SCH (09:34)
[2017-09-14] MEDS: GLUCOTROL PO SCH (09:34)
[2017-09-14] MEDS: FEOSOL PO SCH (09:34)
[2017-09-14] MEDS: PEPCID PO SCH (09:35)
[2017-09-14] MEDS: SYNTHROID PO SCH (09:35)
[2017-09-14] MEDS: VITAMIN D3 PO SCH (09:35)
[2017-09-14] MEDS: SODIUM CHLORIDE FLUSH SYRINGE 10 ML IV SCH (09:39)
[2017-09-14] MEDS: CARDIZEM CD PO SCH (11:34)
[2017-09-14] MEDS: COREG PO SCH (11:34)
[2017-09-14] MEDS: BIDIL 20/37.5MG PO SCH (11:34)
[2017-09-14 11:35] VITALS: BP 132/80
[2017-09-14] MEDS ORDERED: MAG-OX PO SCH (12:00)
--- NOTE | 2017-09-14 12:53 | Discharge Summary ---
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 Hospitalization Condition: Critical Disposition: DC-30 STILL A PATIENT - Discharge Diagnoses (1) Acute kidney injury Status: Acute (2) Atrial fibrillation with RVR Status: Acute (3) CHF (congestive heart failure) Status: Acute Qualifiers: Heart failure type: systolic Heart failure chronicity: acute on chronic Qualified Code(s): I50.23 - Acute on chronic systolic (congestive) heart failure (4) Chest pain Status: Acute Core Measure Documentation - Palliative Care Palliative Care/ Comfort Measures: Not Applicable - Core Measures Any of the following diagnoses?: none Exam - Constitutional Vitals: Temp Pulse Resp BP Pulse Ox 98.2 F 95 H 19 132/80 95 09/14/17 09:15 09/14/17 11:34 09/14/17 11:27 09/14/17 11:34 09/14/17 11:27 Plan Activity: no restrictions Weight Bearing Status: Full Weight Bearing Diet: low cholesterol, low salt, diabetic Additional Instructions: Follow up at [facility] in 1-2 weeks Prescriptions: Apixaban [Eliquis] 5 mg PO Q12HR #60 tablet Diltiazem Cd [Cardizem CD] 120 mg PO QDAY #30 capsule
[2017-09-14 13:06] LABS: Creatinine,Urine 64.9 mg/dL (0.1-20.0)
--- NOTE | 2017-09-14 13:40 | Progress Note ---
Assessment and Plan - Patient Problems (1) Acute kidney injury Current Visit: Yes Status: Acute Plan to address problem: Acute kidney injury probably multifactorial. I suspect prerenal azotemia versus acute tubular necrosis secondary to hypotension on presentation. Patient also receiving diuretics and angiotensin receptor sherman with borderline low blood pressures which may be contributing. kidney function is better so I agree with discharge. We'll follow up kidney function in 1 week. (2) Chronic kidney disease, stage III (moderate) Current Visit: Yes Status: Acute Plan to address problem: Suspect baseline stage III chronic disease secondary to diabetic nephropathy/ hypertensive nephrosclerosis. (3) Type 2 diabetes mellitus Current Visit: Yes Status: Acute Plan to address problem: Long-standing history of type 2 diabetes mellitus. Blood sugar management by primary attending Karen (4) Chronic systolic heart failure Current Visit: Yes Status: Acute Plan to address problem: Stable volume status. We need to hold angiotensin receptor sherman in the setting of hypotension and worsening kidney function. Rechallenge when blood pressure and kidney function stable (5) Hypotension Current Visit: Yes Status: Acute Plan to address problem: Hypotension resolved. Follow up blood pressure on discharge medications. Patient instructed to hold by Bidil if systolic blood pressures less than 120 mmHg. Call with any questions. Subjective Date of service: 09/14/17 Principal diagnosis: Afib with RVR, distolic HF Interval history: Patient seen in her room. She feels much better. He is eager to go home. Objective - Exam Narrative Exam: Middle aged -[place]cu[place] female lying in bed in no acute distress HEENT: NCAT, pink oral mucous membrane Neck: Supple, no venous distention CVS: S1S2 RRR with no murmur, rub or gallop Chest: Clear to auscultation Abdomen: Protuberant, soft, nontender, no organomegaly, bowel sounds are present Extremities: No edema, No clubbing Skin warm and dry, no rash Neuro: Awake, alert no focal deficits - Vital Signs Vital signs: Vital Signs - 12hr 09/14/17 09/14/17 09/14/17 04:28 09:15 11:27 Temperature 97.4 F L 98.2 F Pulse Rate 64 75 77 Respiratory 18 18 19 Rate Blood Pressure 109/71 127/66 132/80 O2 Sat by Pulse 98 96 95 Oximetry 09/14/17 11:34 Temperature Pulse Rate 95 H Respiratory Rate Blood Pressure 132/80 O2 Sat by Pulse Oximetry - Lab 09/13/17 07:07 09/14/17 06:27 Most recent lab results Calcium 8.4 mg/dL (8.4-10.2) 09/14/17 06:27 Magnesium 1.50 mg/dL (1.7-2.3) L 09/14/17 06:27 Urine Creatinine 64.9 mg/dL (0.1-20.0) H 09/14/17 12:30 Urine Total Protein 8 mg/dL (5-11.8) 09/14/17 12:30
== END 2017-09-14 14:40 | disposition home or self-care (01) | DRG 682 ==
LOC: ED 10:42 → 4A 13:12
PROVIDERS: ADMIT Internal Medicine; ATTEND Internal Medicine
DX: N17.0 Acute kidney failure with tubular necrosis (principal); I50.23 Acute on chronic systolic (congestive) heart failure; I24.9 Acute ischemic heart disease, unspecified; I13.0 Hypertensive heart and chronic kidney disease with heart failure and stage 1 through stage 4 chronic kidney disease, or unspecified chronic kidney disease; I42.8 Other cardiomyopathies; I48.91 Unspecified atrial fibrillation; K21.9 Gastro-esophageal reflux disease without esophagitis; E89.0 Postprocedural hypothyroidism; I95.9 Hypotension, unspecified; E78.5 Hyperlipidemia, unspecified; N18.3 Chronic kidney disease, stage 3 (moderate); E11.22 Type 2 diabetes mellitus with diabetic chronic kidney disease; Z79.82 Long term (current) use of aspirin; Z79.899 Other long term (current) drug therapy; I25.2 Old myocardial infarction; Z87.442 Personal history of urinary calculi; Z82.49 Family history of ischemic heart disease and other diseases of the circulatory system; Z83.3 Family history of diabetes mellitus
CPT/HCPCS: 36415; 71045; 76770; 80048; 81001; 82570; 82962; 83735; 83880; 84156; 84439; 84443; 84484; 85007; 85014; 85018; 85025; 85379; 85520; 85610; 85730; 89050; 93005; 93010; 93306; 94760; 96361; 96365; 96366; 96375; A9270-GY; J0282; J1644; J1940; J7030; J7040; J7060

== ENCOUNTER 2017-11-03 15:03 | Emergency (ER) | payer MEDICARE ==
[2017-11-03] MEDS ORDERED: CATAPRES PO ONE (16:31)
--- NOTE | 2017-11-03 17:35 | Emergency Department Report ---
ED General Adult HPI - General Chief complaint: High BP Stated complaint: HIGH BP Time Seen by Provider: 11/03/17 16:06 Source: patient Mode of arrival: Ambulatory Limitations: No Limitations - History of Present Illness Initial comments: Patient is a 62-year-old female who is presenting with concern about her blood pressure. Patient states is been taking her blood pressures at home because she is Pat stressed and one of her family members just and she is noting that his heart. Patient states she's been taking her meds as prescribed. Patient is denying any chest pain shortness of breath nausea vomiting decreased urination or focal neurological symptoms. - Related Data Home Medications Medication Instructions Recorded Confirmed Last Taken Aspirin 81 mg PO DAILY 03/26/16 09/09/17 09/23/16 Carvedilol [Coreg] 25 mg PO BID 03/26/16 09/09/17 09/09/17 glipiZIDE [Glucotrol] 10 mg PO BID 03/26/16 09/09/17 09/23/16 metFORMIN [Glucophage] 1,000 mg PO BID 03/26/16 09/09/17 09/23/16 oxyCODONE /ACETAMINOPHEN [Percocet 1 tab PO BID PRN 03/26/16 09/09/17 09/23/16 5/325 mg] AtorvaSTATin [Lipitor] 10 mg PO DAILY 09/24/16 09/09/17 09/23/16 Isosorbibe Dinit/Hydralazine 1 tab PO TID 09/24/16 09/09/17 09/24/16 08:30 [Bidil Tablet] Levothyroxine [Synthroid] 75 mcg PO QAM 09/24/16 09/09/17 09/23/16 Cholecalciferol (Vitamin D3) 1,000 unit PO QDAY 09/09/17 09/09/17 Unknown [Vitamin D3] Ferrous Sulfate [Iron] 325 mg PO QDAY 09/09/17 09/09/17 Unknown Losartan [Cozaar] 100 mg PO QDAY 09/09/17 09/09/17 09/09/17 Ranitidine HCl [Zantac 150 MG TAB] 150 mg PO QDAY 09/09/17 09/09/17 Unknown Previous Rx's Medication Instructions Recorded Last Taken Type Apixaban [Eliquis] 5 mg PO Q12HR #60 tablet 09/14/17 Unknown Rx Diltiazem Cd [Cardizem CD] 120 mg PO QDAY #30 capsule 09/14/17 Unknown Rx Allergies Allergy/AdvReac Type Severity Reaction Status Date / Time No Known Allergies Allergy Verified 04/21/16 12:33 ED Review of Systems ROS: Stated complaint: HIGH BP Other details as noted in HPI Comment: All other systems reviewed and negative ED Past Medical Hx - Past Medical History Previous Medical History?: Yes Hx Hypertension: Yes Hx Heart Attack/AMI: Yes (2009, cath negative per patient, follows with Dr. Minor ) Hx Congestive Heart Failure: Yes Hx Diabetes: Yes (TYPE 2) Hx GERD: Yes Hx Liver Disease: No Hx Renal Disease: No Hx Headaches / Migraines: No Hx Seizures: No Hx Kidney Stones: Yes (2015) Hx Asthma: No Hx HIV: No Additional medical history: Thyroid, Neck pain, Right shoulder pain, Carpel tunnel pain - Surgical History Past Surgical History?: Yes Hx Coronary Stent: No Hx Open Heart Surgery: No Hx Pacemaker: No Hx Internal Defibrillator: No Hx Cholecystectomy: No Hx Appendectomy: No Hx Breast Surgery: No Additional Surgical History: thyroidectomy, Right shoulder rotator cuff surgery - Social History Smoking Status: Former Smoker Substance Use Type: Alcohol, Prescribed - Medications Home Medications: Home Medications Medication Instructions Recorded Confirmed Last Taken Type Aspirin 81 mg PO DAILY 03/26/16 09/09/17 09/23/16 History Carvedilol [Coreg] 25 mg PO BID 03/26/16 09/09/17 09/09/17 History glipiZIDE [Glucotrol] 10 mg PO BID 03/26/16 09/09/17 09/23/16 History metFORMIN [Glucophage] 1,000 mg PO BID 03/26/16 09/09/17 09/23/16 History oxyCODONE /ACETAMINOPHEN [Percocet 1 tab PO BID PRN 03/26/16 09/09/17 09/23/16 History 5/325 mg] AtorvaSTATin [Lipitor] 10 mg PO DAILY 09/24/16 09/09/17 09/23/16 History Isosorbibe Dinit/Hydralazine 1 tab PO TID 09/24/16 09/09/17 09/24/16 08:30 History [Bidil Tablet] Levothyroxine [Synthroid] 75 mcg PO QAM 09/24/16 09/09/17 09/23/16 History Cholecalciferol (Vitamin D3) 1,000 unit PO QDAY 09/09/17 09/09/17 Unknown History [Vitamin D3] Ferrous Sulfate [Iron] 325 mg PO QDAY 09/09/17 09/09/17 Unknown History Losartan [Cozaar] 100 mg PO QDAY 09/09/17 09/09/17 09/09/17 History Ranitidine HCl [Zantac 150 MG TAB] 150 mg PO QDAY 09/09/17 09/09/17 Unknown History Apixaban [Eliquis] 5 mg PO Q12HR #60 tablet 09/14/17 Unknown Rx Diltiazem Cd [Cardizem CD] 120 mg PO QDAY #30 capsule 09/14/17 Unknown Rx ED Physical Exam - General Limitations: No Limitations General appearance: alert, in no apparent distress - Head Head exam: Present: atraumatic, normocephalic - Eye Eye exam: Present: normal appearance - ENT ENT exam: Present: mucous membranes moist - Neck Neck exam: Present: normal inspection - Respiratory Respiratory exam: Present: normal lung sounds bilaterally. Absent: respiratory distress, wheezes, rales - Cardiovascular Cardiovascular Exam: Present: regular rate, normal rhythm. Absent: systolic murmur, diastolic murmur, rubs, gallop - GI/Abdominal GI/Abdominal exam: Present: soft, normal bowel sounds. Absent: distended, tenderness, guarding, rebound - Extremities Exam Extremities exam: Present: normal inspection - Back Exam Back exam: Present: normal inspection - Neurological Exam Neurological exam: Present: alert, oriented X3 - Psychiatric Psychiatric exam: Present: normal affect, normal mood - Skin Skin exam: Present: warm, dry, intact, normal color. Absent: rash ED Course Vital Signs 11/03/17 11/03/17 11/03/17 15:18 16:35 17:24 Temperature 97.4 F L Pulse Rate 74 74 70 Respiratory 20 Rate Blood Pressure 198/104 194/111 Blood Pressure 152/91 [Left] O2 Sat by Pulse 100 Oximetry ED Medical Decision Making - Medical Decision Making Patient's blood pressure decreased to 152/91 after 0.2 Catapres. I did review the patient's medications and they do seem to be very appropriate. Think the patient needs to follow with her quality improvement coordinator (rn) and she has an appointment for Tuesday which is in 3 days. Patient's again had no end organ damage signs and symptoms and the patient can have her meds adjusted if necessary by her quality improvement coordinator (rn). Critical care attestation.: If time is entered above; I have spent that time in minutes in the direct care of this critically ill patient, excluding procedure time. ED Disposition Clinical Impression: Hypertensive urgency Disposition: [id number]-01 TO HOME OR SELFCARE Is pt being admited?: No Does the pt Need Aspirin: No Condition: Stable Instructions: Hypertension (ED) Referrals: PRIMARY CARE, [Primary Care Provider] - 3-5 Days
[2017-11-03 17:41] VITALS: BP 150/90
== END 2017-11-03 17:40 | disposition home or self-care (01) ==
LOC: ED 15:03
DX: I16.0 Hypertensive urgency (principal); I50.9 Heart failure, unspecified; E11.9 Type 2 diabetes mellitus without complications; K21.9 Gastro-esophageal reflux disease without esophagitis; I25.2 Old myocardial infarction; Z87.891 Personal history of nicotine dependence
CPT/HCPCS: 99282

== ENCOUNTER 2019-01-05 08:25 | Outpatient (CLI) | payer MEDICARE ==
[2019-01-05 09:04] LABS: Bilirubin,Urine NEG (Negative); Color,Urine Yellow (Yellow)
[2019-01-05 09:04] LABS: Calcium 9.4 mg/dL (8.4-10.2)
[2019-01-05 09:05] LABS: Blood,Urine NEG (Negative); Mucus,Urine FEW /HPF
[2019-01-05 09:07] LABS: Hematocrit 37.3 % (30.3-42.9); Hemoglobin 11.9 gm/dl (10.1-14.3); Mean Corpuscular HGB Conc 32 % (30-34); Mean Corpuscular Volume 79 fl (79-97); Platelet Count 250 K/mm3 (140-440); Red Blood Count 4.72 M/mm3 (3.65-5.03); Red Cell Distribution Width 14.6 % (13.2-15.2)
[2019-01-05 12:01] LABS: Protein/Creatinine Ratio,Urine 0.23
[2019-01-08 08:56] LABS: Vitamin D, 25-OH, D2 <4 ng/mL
== END 2019-01-05 08:26 | disposition home or self-care (01) ==
LOC: LAB 08:25
PROVIDERS: ATTEND Internal Medicine Nephrology
DX: E11.22 Type 2 diabetes mellitus with diabetic chronic kidney disease (principal); I13.0 Hypertensive heart and chronic kidney disease with heart failure and stage 1 through stage 4 chronic kidney disease, or unspecified chronic kidney disease; N18.3 Chronic kidney disease, stage 3 (moderate); I50.9 Heart failure, unspecified; N25.81 Secondary hyperparathyroidism of renal origin; E78.00 Pure hypercholesterolemia, unspecified; E89.0 Postprocedural hypothyroidism; Z98.51 Tubal ligation status
CPT/HCPCS: 36415; 80048; 81001; 82306; 82570; 83970; 84100; 84156; 85027